=== PATIENT | female | born 1950 | race Caucasian/White ===

== ENCOUNTER 2024-05-17 12:07 | Emergency (ER) | payer MEDICARE, OTHER ==
[~2024-05-17] VITALS: Ht 157.5 cm; Wt 47.1 kg
[2024-05-17 13:13] LABS: Basophils # (auto) 0 10 ^3/uL (0-0.2); Basophils % (auto) 0.9 % (0.0-2.0); Eosinophils # (auto) 0.5 10 ^3/uL (0-0.8); Eosinophils % (auto) 9.7 % (0.0-7.0); Hematocrit 43.9 % (36.0-46.0); Hemoglobin 15.2 g/dL (12.2-16.2); Lymphocytes # (auto) 1.2 10 ^3/uL (0.4-5.4); Lymphocytes % (auto) 23.1 % (10.0-50.0); Mean Corpuscular Hemoglobin 32.5 pg (28.0-32.0); Mean Corpuscular Hgb Conc. 34.6 g/dL (32.0-36.0); Monocytes # (auto) 0.4 10 ^3/uL (0-1.3); Monocytes % (auto) 8.1 % (0.0-12.0); Neutrophils % (auto) 58.2 % (37.0-80.0); Platelet Count (auto) 233 10^3/uL (140-450); Red Blood Cells 4.68 10^6/uL (4.0-5.20); Red Cell Distribution Width 13.7 % (11.8-14.3); White Blood Cell 5.2 10^3/uL (4.4-10.8)
[2024-05-17 13:27] LABS: Chloride 106 mmol/L (98-107); Potassium 3.1 mmol/L (3.5-5.1); Sodium 141 mmol/L (136-145)
[2024-05-17 13:28] LABS: Anion Gap 6 (5-15); Carbon Dioxide 29 mmol/L (20-30)
[2024-05-17 13:29] LABS: Calcium 10.4 mg/dL (8.7-10.4)
[2024-05-17 13:33] LABS: Glucose 106 mg/dL (74-106)
[2024-05-17 13:36] VITALS: BP 108/62; PULSE 66; RESP 22; TEMP 98.1; O2SAT 99
[2024-05-17] MEDS: ALBUTEROL SULF 2.5 MG/0.5ML(0.5%) NEB SOLN ONE (13:55)
[2024-05-17 14:00] VITALS: RESP 12; O2SAT 100
[2024-05-17] MEDS ORDERED: ALBUTEROL SULF 2.5 MG/0.5ML(0.5%) NEB SOLN NEB ONE (14:00)
[2024-05-17 14:15] LABS: BUN/Creatinine Ratio 13.7 (10.0-20.0); Blood Urea Nitrogen 13 mg/dL (9-23)
== END 2024-05-17 15:16 | disposition home or self-care (01) ==
LOC: ER 12:07
DX: R06.02 Shortness of breath (principal); E78.5 Hyperlipidemia, unspecified
CPT/HCPCS: 36415; 71045; 80048; 84484; 85025; 93005; 94640

== ENCOUNTER 2024-07-30 16:16 | Inpatient (IN) | payer MEDICARE ==
[~2024-07-30] VITALS: Ht 157.5 cm; Wt 51.2 kg
[2024-07-30 16:33] VITALS: PULSE 117; RESP 24; O2SAT 96
[2024-07-30] MEDS: LEVALBUTEROL HCL 1.25 MG/3 ML NEB NEB ONE ×2 (16:39→18:34)
[2024-07-30] MEDS: IPRATROPIUM BROM 0.5 MG/2.5ML INH SOL NEB ONE ×2 (16:39→18:33)
[2024-07-30] MEDS: methylPREDNISolone SOD SUCC 125 MG/2 ML VL IV ONE (16:43)
--- NOTE | 2024-07-30 16:47 | ED.PDOC ---
SOB-HPI HPI Comments This is a 74-year-old female who comes into the ED with chief complain of shortness of breath. She has a past medical history relevant for hypertension, hypothyroidism. Denies any smoking history. History was obtained by granddaughter as patient could not speak in full sentences due to respiratory distress. They state that she started having productive cough two days ago, along with shortness of breath, which was worse on exertion, they state that today at home diminishes her saturation and was in the 80s, so they decided to bring her to the hospital. Patient also states having [id number] chest pain, she stated that it was located throughout the chest, which is worse on deep inspiration, she mentions that all her symptoms get worse on exertion. She was also experiencing dizziness and lightheadedness in the last couple of days. She also mentions that in the last 4-5 months she has lost around 45 lb. Denies any chills, fevers, night sweats. Denies any abdominal pain, nausea, vomiting, diarrhea, constipation, extremity swelling, hematochezia, melena. Chief Complaint: Shortness of Breath Time Seen by MD: 16:17 Primary Care Provider: DARIUS Reviewed notes: Nurses Notes Information Source: Patient, Relative (GrandChild) Mode of Arrival: Ambulatory Severity: Severe Timing: Days Duration: Since onset Context: At Rest Past Medical History PAST MEDICAL HISTORY: High Lipids, Thyroid Surgical History: Denies all surgeries INFORMATION WRITER History: Denies all INFORMATION WRITER Hx Family History Family History: Reviewed,noncontributory to illness Social History Smoker: Non-Smoker Alcohol: Denies ETOH Use Drugs: Denies Drug Use Lives In: Home Constitutional: reports: chills, fatigue, malaise, weakness; denies: diaphoresis, fever, sweats, others EENTM: denies: blurred vision, double vision, ear bleeding, ear discharge, ear drainage, ear pain, ear ringing, eye pain, eye redness, hearing loss, mouth pain, mouth swelling, nasal discharge, nose bleeding, nose congestion, nose pain, photophobia, tearing, throat pain, throat swelling, voice changes, others Respiratory: reports: cough, orthopnea, SOB at rest, shortness of breath, SOB with excertion, wheezing; denies: hemoptysis, stridor, others Cardiovascular: reports: chest pain; denies: dizzy spells, diaphoresis, Dyspnea on exertion, edema, irregular heart beat, left arm pain, lightheadedness, palpitations, PND, syncope, others Gastrointestinal: denies: abdomen distended, abdominal pain, blood streaked bowels, constipated, diarrhea, dysphagia, difficulty swallowing, hematemesis, melena, nausea, poor appetite, poor fluid intake, rectal bleeding, rectal pain, vomiting, others Genitourinary: denies: abnormal vagina bleeding, burning, dyspareunia, dysuria, flank pain, frequency, hematuria, incontinence, pain, , vagina discharge, urgency, others Neurological: denies: dizziness, fainting, headache, left sided numbness, left sided weakness, numbness, paresthesia, pre-existing deficit, right sided numbness, right sided weakness, seizure, speech problems, tingling, tremors, weakness, others Musculoskeletal: denies: back pain, gout, joint pain, joint swelling, muscle pain, muscle stiffness, neck pain, others Integumetry: denies: bruises, change in color, change in hair/nails, dryness, laceration, lesions, lumps, rash, wounds, others Allergic/Immunocompromised: denies: Difficulty Healing, Frequent Infections, Hives, Itching, others Hematologic/Lymphatic: denies: anemia, blood clots, easy bleeding, easy bruising, swollen glands, others Endocrine: denies: excessive hunger, excessive sweating, excessive thirst, excessive urination, flushing, intolerance to cold, intolerance to heat, unexplained weight gain, unexplained weight loss, others Psychiatric: denies: anxiety, bipolar disorder, depression, hopeless, panic disorder, schizophrenia, sleepless, suicidal, others Physical Exam General Appearance: Severe Distress, Thin HEENT: Normal ENT Inspection, Pharynx Normal, TMs Normal Neck: Full Range of Motion, Non-Tender, Normal, Normal Inspection Respiratory: Decreased Breath Sounds, Expiration, Respiratory Distress, Wheezing Cardiovascular: No Edema, No JVD, No Murmur, No Gallop, Normal Peripheral Pulses, Tachycardia Breast Exam: Deferred Gastrointestinal: No Organomegaly, Non Tender, No Pulsatile Mass, Normal Bowel Sounds, Soft Genitalia: Deferred Pelvic: Deferred Rectal: Deferred Extremities: No calf tenderness, Normal capillary refill, Normal inspection, Normal range of motion, Non-tender, No pedal edema Neurologic: Alert, shellfish checker II-XII nml as Tested, No Motor Deficits, Normal Affect, Normal Mood, No Sensory Deficits Cerebellar Function: NOT DONE Reflexes: NOT DONE Skin: Dry, Normal Color, Warm Lymphatic: No Adenopathy Was a procedure done? Was a procedure done?: No Differential Dx Differential Diagnosis: Asthma, Bronchitis, CHF, COPD, Hypertension, Myocardial infarction, Pneumonia, Pulmonary Embolism, Respiratory Distress, URI X-Ray, Labs, Meds, VS Vital Signs Date Time Temp Pulse Resp B/P (MAP) Pulse Ox O2 Delivery O2 Flow Rate FiO2 07/30/24 16:39 22 97 Nasal Cannula* 44 07/30/24 16:39 97 Nasal Cannula* 44 07/30/24 16:37 111 07/30/24 16:33 117 24 96 Nasal Cannula* 44 07/30/24 16:33 99.8 117 24 156/92 (113) 96 99.8 07/30/24 16:18 98.7 122 28 161/83 (109) 93 Lab Test 07/30/24 17:48 07/30/24 16:48 Range/Units Troponin I High Sensitivity Pending 10 </=34 ng/L White Blood Count 11.2 H 4.4-10.8 10^3/uL Red Blood Count 4.38 4.0-5.20 10^6/uL Hemoglobin 14.4 12.2-16.2 g/dL Hematocrit 42.0 36.0-46.0 % Mean Corpuscular Volume 95.8 80.0-100.0 fL Mean Corpuscular Hemoglobin 33.0 H 28.0-32.0 pg Mean Corpuscular Hemoglobin Concent 34.4 32.0-36.0 g/dL Red Cell Distribution Width 12.8 11.8-14.3 % Platelet Count 191 140-450 10^3/uL Mean Platelet Volume 8.4 6.9-10.8 fL Neutrophils (%) (Auto) 87.7 H 37.0-80.0 % Lymphocytes (%) (Auto) 4.6 L 10.0-50.0 % Monocytes (%) (Auto) 7.3 0.0-12.0 % Eosinophils (%) (Auto) 0.1 0.0-7.0 % Basophils (%) (Auto) 0.3 0.0-2.0 % Neutrophils # (Auto) 9.8 H 1.6-8.6 10 ^3/uL Lymphocytes # (Auto) 0.5 0.4-5.4 10 ^3/uL Monocytes # (Auto) 0.8 0-1.3 10 ^3/uL Eosinophils # (Auto) 0 0-0.8 10 ^3/uL Basophils # (Auto) 0 0-0.2 10 ^3/uL Nucleated Red Blood Cells 0.1 % D-Dimer, Quantitative 0.46 0.0-0.49 mg/L FEU Sodium Level 139 136-145 mmol/L Potassium Level 3.0 L 3.5-5.1 mmol/L Chloride Level 103 98-107 mmol/L Carbon Dioxide Level 27 20-31 mmol/L Anion Gap 9 5-15 Blood Urea Nitrogen 22 9-23 mg/dL Creatinine 1.21 H 0.550-1.02 mg/dL Glomerular Filtration Rate Calc 47 >90 mL/min BUN/Creatinine Ratio 18.2 10.0-20.0 Serum Glucose 116 H 74-106 mg/dL Calcium Level 9.8 8.7-10.4 mg/dL B-Type Natriuretic Peptide 39.71 0-100 pg/mL Current Medications Medications (Trade) Dose Ordered Sig/Minda Route Start Time Stop Time Status Last Admin Levalbuterol HCl (Xopenex Medneb) 1.25 mg ONCE ONCE NEB 07/30/24 16:30 07/30/24 16:31 DC 07/30/24 16:39 Ipratropium Munden (Atrovent Medneb) 1 mg ONCE ONCE NEB 07/30/24 16:30 07/30/24 16:31 DC 07/30/24 16:39 Methylprednisolone Sodium Succinate (Solu Medrol) 80 mg ONCE ONCE IV 07/30/24 16:45 07/30/24 16:46 DC 07/30/24 16:43 Azithromycin 250 ml @ 125 mls/hr ONCE ONCE IV 07/30/24 17:00 07/30/24 18:59 07/30/24 17:20 On my initial assessment, patient was noted to be on severe distress due to sh ortness of breath, using accessory muscles, blood pressure was 160 over 90, saturating in the 80s%, we place her on nasal cannula at 6 L, oxygen saturation went up to 96%. Patient is noted to be wheezing, having chest pain as well. Heart rate is at 120s. Respiratory rate was 28 initially and it came down to 22. We ordered a CBC, BNP, D-dimer, troponins, BMP, chest x-ray, EKG, influenza test, COVID test, UA, we will also prescribe her Xopenex inhaler and Atrovent inhaler, chest x-ray demonstrated hyperinflated lungs, no definitive consolidation or significant vascular congestion, we will order Solu-Medrol 80 mg IV once, and ordered azithromycin IV. We will continue to reassess. [place] [address], with neutrophilia, troponins were normal, EKG without ST changes, BNP was normal. D-dimer came back negative, patient respiratory rate is currently at 18, heart rate is still running in the 110s, EKG showed in sinus tachycardia, we will order 2nd dose of Xopenex and Atrovent, gave her potassium pill as she was mildly hypokalemic, we will also give her magnesium IV. We will put the patient for admission given acute hypoxic respiratory failure, likely related to COPD or asthma exacerbation, possible pulmonary fibrosis. PE or DVT was ruled out. Images Reviewed?: Images reviewed and evaluated by me Time of 1ST Reevaluation: 16:37 Reevaluation 1ST: Unchanged Time of 2ND Reevaluation: 17:59 Reevaluation 2ND: Improved Patient Education/Counseling: Diagnosis, Treatment Family Education/Counseling: Diagnosis, Treatment Departure 1 Departure Time of Disposition: 17:59 Impression: Primary Impression: Acute hypoxic respiratory failure Additional Impressions: COPD exacerbation Asthma exacerbation Viral pneumonia Pulmonary embolism ACS (acute coronary syndrome) Essential hypertension Sepsis Disposition: 09 ADMITTED INPATIENT Condition: Guarded Critical Care Note Critical Care Time?: No Stability Stability form required: No Heart Score Heart Score: Heart Score Response (Comments) Value History Moderate Suspicious 1 EKG Repolarization Disturb 1 Age >65 2 Risk Factors 1 or 2 risk factors 1 Troponin Normal limit 0 Total 5 JANAE HAYWOOD RESIDENT Jul 30, 2024 16:47
--- NOTE | 2024-07-30 16:54 | DVH ---
EXAM: XR Chest, 1 View CLINICAL INDICATION: sob TECHNIQUE: Frontal view of the chest. COMPARISON: XY CHEST XRAY 1 VIEW on DOS: 05/17/24 FINDINGS: LUNGS AND PLEURAL SPACES: Unremarkable. No consolidation. No pneumothorax. HEART: Unremarkable. No cardiomegaly. MEDIASTINUM: Unremarkable. Normal mediastinal contour. BONES/JOINTS: Unremarkable. No acute fracture. OTHER FINDINGS: . . . IMPRESSION: No acute cardiopulmonary process. HS:Y
[2024-07-30 17:02] LABS: Basophils # (auto) 0 10 ^3/uL (0-0.2); Basophils % (auto) 0.3 % (0.0-2.0); Eosinophils # (auto) 0 10 ^3/uL (0-0.8); Eosinophils % (auto) 0.1 % (0.0-7.0); Hemoglobin 14.4 g/dL (12.2-16.2); Lymphocytes # (auto) 0.5 10 ^3/uL (0.4-5.4); Lymphocytes % (auto) 4.6 % (10.0-50.0); Mean Corpuscular Hgb Conc. 34.4 g/dL (32.0-36.0); Mean Corpuscular Volume 95.8 fL (80.0-100.0); Monocytes # (auto) 0.8 10 ^3/uL (0-1.3); Monocytes % (auto) 7.3 % (0.0-12.0); Neutrophils # (auto) 9.8 10 ^3/uL (1.6-8.6); Neutrophils % (auto) 87.7 % (37.0-80.0); Nucleated Red Blood Cells % 0.1 %; Platelet Count (auto) 191 10^3/uL (140-450); Red Blood Cells 4.38 10^6/uL (4.0-5.20); Red Cell Distribution Width 12.8 % (11.8-14.3); White Blood Cell 11.2 10^3/uL (4.4-10.8)
[2024-07-30] MEDS: AZITHROMYCIN 500MG/ 250ML 250 ML IV ONE (17:20)
[2024-07-30 17:40] LABS: Chloride 103 mmol/L (98-107); Sodium 139 mmol/L (136-145)
[2024-07-30 17:41] LABS: Anion Gap 9 (5-15); Carbon Dioxide 27 mmol/L (20-31)
[2024-07-30 17:42] LABS: Calcium 9.8 mg/dL (8.7-10.4)
[2024-07-30 17:46] LABS: BUN/Creatinine Ratio 18.2 (10.0-20.0); Blood Urea Nitrogen 22 mg/dL (9-23); Glucose 116 mg/dL (74-106)
[2024-07-30] MEDS: POTASSIUM CHL 20 Meq TABLET PO ONE (18:02)
[2024-07-30] MEDS: MAGNESIUM SULFATE 1GM/100ML 100 ML IV ONE (18:23)
--- NOTE | 2024-07-30 18:35 | ECG ---
[facility] Test Date: 2024-07-30 Test Time: 16:37:56 Pat Name: HERIBERTO RETANA Department: ER Room: 0245 Gender: F Channel Supervisor: DR YOON: 1950 Requested By: JANAE GARZA Order Number: [id number] Reading MD: Rachid Genao Measurements Intervals [place] Rate: 111 P: 78 VT: 147 QRS: -8 QRSD: 92 T: 48 QT: 333 QTc: 453 Interpretive Statements Sinus tachycardia Multiple premature complexes, vent & supraven Low voltage, extremity and precordial leads Electronically Signed On 07-31-2024 12:45:36 PST by Rachid Genao Please click the below link to view image of tracing.
[2024-07-30 18:57] LABS: COVID19 ANTIGEN SOFIA FIA NEGATIVE (NEGATIVE); Rapid Influenza A Negative (Negative); Rapid Influenza B Negative (Negative)
[2024-07-30 19:37] VITALS: PULSE 101; RESP 25; O2SAT 97
[2024-07-30] MEDS ORDERED: ONDANSETRON HCL 4 MG/2 ML VIAL IV PRN (21:45)
[2024-07-30] MEDS ORDERED: NITROGLYCERIN 0.4 MG SL TAB SL PRN (21:45)
[2024-07-30] MEDS ORDERED: ACETAMINOPHEN 325 MG TAB PO PRN (21:45)
[2024-07-30] MEDS ORDERED: MORPHINE SULFATE INJ 2 MG/ml SYRG IV PRN (21:45)
[2024-07-30] MEDS ORDERED: HYDROcodone-ACET 5/325MG TAB PO PRN (21:45)
[2024-07-30] MEDS: SODIUM CHLOR 0.9% PF (SALINE LOCK) 10ML VIAL/SYR IV SCH (22:04)
--- NOTE | 2024-07-30 22:06 | DVHHPRES ---
History of Present Illness Resident Creating Document: TUNG CONTRERAS RESIDENT History of Present Illness This is a 74-year-old female who comes into the ED with chief complain of shortness of breath. She has a past medical history relevant for hypertension, hypothyroidism. History was obtained by granddaughter as patient could not speak in full sentences due to respiratory distress. They state that she started having productive cough two days ago, along with shortness of breath, which was worse on exertion, and today at home diminishes her saturation and was in the 80s, so they decided to bring her to the hospital. Patient also states having xevr-xu-[id number] chest pain,located throughout the chest, which is worse on deep inspiration, she mentions that all her symptoms get worse on exertion. She was also experiencing dizziness and lightheadedness in the last couple of days. She also mentions that in the last 4-5 months she has lost around 45 lb. Denies any chills, fevers, night sweats, abdominal pain, nausea, vomiting, diarrhea, constipation, extremity swelling, hematochezia, melena. Past Medical History Hypertension, hyperlipidemia, hypothyroidism. Past Surgical History Cholecystectomy Family History: None Smoke: No ALCOHOL: none Drugs: None Lives: Alone Review of Systems Constitutional: No: Fever, Chills, Sweats, Weakness, Malaise, Other Eyes: No: Pain, Vision change, Conjunctivae inflammation, Eyelid inflammation, Other, Redness ENT: No: Ear pain, Ear discharge, Nose pain, Nose discharge, Nose congestion, Mouth pain, Mouth swelling, Throat pain, Throat swelling, Other Respiratory: Cough, Shortness of breath, SOB with excertion, Sputum; No: Dry, Wheezing, Hemoptysis, Pleuritic Pain, Wheezing, Other Cardiovascular: Chest Pain; No: Palpitations, Orthopnea, Paroxysmal Noc. Dyspnea, Edema, Lt Headedness, Other Gastrointestinal: No: Nausea, Vomiting, Abdominal Pain, Diarrhea, Constipation, Melena, Hematochezia, Other Genitourinary: No Dysuria, No Frequency, No Incontinence, No Hematuria, No Retention, No Other Musculoskeletal: No: other, neck pain, shoulder pain, arm pain, back pain, hand pain, leg pain, foot pain Skin: No: Rash, Lesions, Jaundice, Bruising, Other Neurological: No: Weakness, Numbness, Incoordination, Change in speech, Confusion, Seizures, Other Allergies: Coded Allergies: Penicillins (Verified Allergy, Intermediate, 07/30/24) Medications Current Medications Medications Dose Ordered Sig/Minda Route Start Time Stop Time Status Last Admin Dose Admin Sodium Chloride 10 ml Q8HR IV 07/30/24 22:00 07/30/24 22:04 10 ML Acetaminophen 325 mg Q4HP PRN PO 07/30/24 21:45 Acetaminophen/ Hydrocodone Bitart 1 tab Q4HP PRN PO 07/30/24 21:45 Ondansetron HCl 4 mg Q4HP PRN IV 07/30/24 21:45 Enoxaparin Sodium 40 mg DAILY SC 07/31/24 10:00 UNV Nitroglycerin 0.4 mg Q5MINP PRN SL 07/30/24 21:45 Morphine Sulfate 2 mg Q30M PRN IV 07/30/24 21:45 Exam Vital Signs Vital Signs Date Time Temp Pulse Resp B/P (MAP) Pulse Ox O2 Delivery O2 Flow Rate FiO2 07/30/24 19:37 101 25 97 Nasal Cannula* 4 36 07/30/24 19:36 98.1 114/79 (91) 98.1 Exam Physical examination: General Appearance: Alert, Oriented X3, Cooperative, moderate distress with 4L oxygen through nasal canula. HEENT: Atraumatic, PERRLA, EOMI, Mucous membrane moist/pink Respiratory: Decreased breath sound bilaterally. Cardiovascular: Regular rate, Normal S1, Normal S2, No murmurs, no chest wall tenderness Abdominal: Normal bowel sounds, Soft, No tenderness, No hepatospenomegaly, No masses Extremities: No clubbing, No cyanosis, No edema, Normal pulses, No tenderness/swelling Skin: No rashes, No breakdown, No significant lesion Neuro: Normal gait, Normal speech, Strength at 5/5 X4 ext, Normal tone, Sensation intact, Cranial nerves 3-12 NL, Reflexes 2+ Psych/Mental Status: Mental status NL, Mood NL Labs/Xrays Labs Test 07/30/24 19:31 07/30/24 18:09 07/30/24 17:48 07/30/24 16:48 Range/Units Troponin I High Sensitivity 10 </=34 ng/L Influenza Type A Antigen Negative Negative Influenza Type B Antigen Negative Negative SARS-CoV-2 Antigen (Rapid) Negative NEGATIVE Magnesium Level 1.7 1.6-2.6 mg/dL White Blood Count 11.2 H 4.4-10.8 10^3/uL Red Blood Count 4.38 4.0-5.20 10^6/uL Hemoglobin 14.4 12.2-16.2 g/dL Hematocrit 42.0 36.0-46.0 % Mean Corpuscular Volume 95.8 80.0-100.0 fL Mean Corpuscular Hemoglobin 33.0 H 28.0-32.0 pg Mean Corpuscular Hemoglobin Concent 34.4 32.0-36.0 g/dL Red Cell Distribution Width 12.8 11.8-14.3 % Platelet Count 191 140-450 10^3/uL Mean Platelet Volume 8.4 6.9-10.8 fL Neutrophils (%) (Auto) 87.7 H 37.0-80.0 % Lymphocytes (%) (Auto) 4.6 L 10.0-50.0 % Monocytes (%) (Auto) 7.3 0.0-12.0 % Eosinophils (%) (Auto) 0.1 0.0-7.0 % Basophils (%) (Auto) 0.3 0.0-2.0 % Neutrophils # (Auto) 9.8 H 1.6-8.6 10 ^3/uL Lymphocytes # (Auto) 0.5 0.4-5.4 10 ^3/uL Monocytes # (Auto) 0.8 0-1.3 10 ^3/uL Eosinophils # (Auto) 0 0-0.8 10 ^3/uL Basophils # (Auto) 0 0-0.2 10 ^3/uL Nucleated Red Blood Cells 0.1 % D-Dimer, Quantitative 0.46 0.0-0.49 mg/L FEU Sodium Level 139 136-145 mmol/L Potassium Level 3.0 L 3.5-5.1 mmol/L Chloride Level 103 98-107 mmol/L Carbon Dioxide Level 27 20-31 mmol/L Anion Gap 9 5-15 Blood Urea Nitrogen 22 9-23 mg/dL Creatinine 1.21 H 0.550-1.02 mg/dL Glomerular Filtration Rate Calc 47 >90 mL/min BUN/Creatinine Ratio 18.2 10.0-20.0 Serum Glucose 116 H 74-106 mg/dL Calcium Level 9.8 8.7-10.4 mg/dL B-Type Natriuretic Peptide 39.71 0-100 pg/mL Assessment/Plan Assessment/Plan Assessment and plan: # Sepsis likely due to possible Gram-positive/Gram-negative pneumonia - patient was presented with elevated temperature, tachycardia, tachypnea and elevated lactic acid - IV normal saline 500 mL bolus given followed by IV normal saline at 75 mL/hour - Ordered blood culture and sputum culture - IV ceftriaxone 1 g daily and IV azithromycin 500 mg daily. # Acute respiratory failure due to possible Gram-positive/Gram-negative pneumonia - Patient is on 4 L oxygen through nasal cannula and saturation 94% # Possible Gram-positive/Gram-negative pneumonia - Chest x-ray revealed normal study - and flu are negative - Ordered blood culture and sputum culture - IV ceftriaxone 1 g daily and IV azithromycin 500 mg daily. # Ruled out pulmonary embolism - D-dimer is normal. # GAVIN likely due to hemodynamically mediated/VMN - IV n/s at 75 ml/hr - Monitor BMP # Hypokalemia - Replenished. # DVT prophylaxis - Lovenox 40 mg sc daily Goal of care discussed with the patient for more than 20 minutes full code Plan of treatment discussed with Dr. Arreaga Plan discussed with: Patient, Other My Orders Orders - TUNG CONTRERAS RESIDENT Procedure Category Date Status Time Admit ADMIT 07/30/24 Transmitted 21:41 Code Status CODE 07/30/24 Transmitted 21:41 Sodium Chloride Lock PHA 07/30/24 In Process (Saline Lock Ns) 22:00 Oxygen Per Hour RT 07/30/24 Transmitted 21:41 Acetaminophen Tablet PHA 07/30/24 In Process (Tylenol Tablet) 21:45 Hydrocodone-Acet PHA 07/30/24 In Process 5/325mg Tab (Bradley 21:45 Ondansetron Hcl PHA 07/30/24 In Process (Zofran) 21:45 Enoxaparin Sodium PHA 07/31/24 Logged (Lovenox) 10:00 Fall Risk Precautions YAYA 07/30/[address] 21:41 Complete Blood Count LAB 07/31/24 Verified 04:00 Comprehensive LAB 07/31/24 Verified Metabolic Panel 04:00 Pt Request For Service PT 07/30/24 Logged 21:41 Echo 2d Mode Cardiac US 07/30/24 Logged DOP 21:41 Nitroglycerin PHA 07/30/24 In Process Sublingual (Ntrostat 21:45 Morphine Sulfate PHA 07/30/24 In Process Injection 21:45 Oxygen By Nasal RT 07/30/24 Transmitted Cannula 21:41 Stat Ekg For Chest [facility] 07/30/24 In Process Pain 21:41 Notify Of Changes [facility] 07/30/24 In Process From Base 21:41 Personal Lines Insurance Advisor For [facility] 07/30/24 In Process 24 Hours 21:41 Emergency Dysrhythmia [facility] 07/30/24 In Process Protocol 21:41 Rhythm Strips Once [facility] 07/30/24 In Process Every Shift 21:41 NS PHA 07/30/24 Transmitted 22:15 Urinalysis LAB 07/30/24 Transmitted 22:03 Potassium LAB 07/30/24 Transmitted 22:05 TUNG CONTRERAS RESIDENT Jul 30, 2024 22:06
[2024-07-30] MEDS: SODIUM CHLORIDE 0.9% 1,000 ML IV ONE (22:15)
[2024-07-30 22:56] LABS: Lactic Acid w/Reflex 2.7 mmol/L (0.4-2.0)
[2024-07-30] MEDS ORDERED: AZITHROMYCIN 500MG/ 250ML 250 ML IV ONE (23:45)
[2024-07-30] MEDS: SODIUM CHLORIDE 0.9% 500 ML IV ONE (23:45)
[2024-07-31] VITALS (13 sets, daily range): BP systolic 111–141; BP diastolic 61–82; PULSE 73–104; RESP 14–21; TEMP 97.4–98.8; O2SAT 93–98
[2024-07-31] MEDS: cefTRIAXone 1GM/50ML D5W 50 ML IV ONE (01:25)
[2024-07-31] MEDS: POTASSIUM CHL 20 Meq TABLET PO ONE (01:27)
[2024-07-31] MEDS ORDERED: POTASSIUM CHLORIDE 80 MEQ, LIDOCAINE 1% (LOCAL ANESTH.) 6 ML in SODIUM CHL 0.9% 500 ML IV ONE (01:45)
[2024-07-31] MEDS ORDERED: POTASSIUM CHLORIDE 20 MEQ, LIDOCAINE 1% (LOCAL ANESTH.) 2 ML in SODIUM CHL 0.9% 100 ML IV ONE (02:00)
[2024-07-31 02:02] LABS: Urine Bacteria None Seen /hpf (None Seen)
[2024-07-31] MEDS: SODIUM CHLORIDE 0.9% 1,000 ML IV SCH (02:19)
[2024-07-31] MEDS: POTASSIUM CHL 20MEQ/100ML 100 ML IV ONE (02:20)
[2024-07-31 02:34] LABS: Urine Blood TRACE /uL (Negative); Urine Clarity Clear (Clear); Urine Color Light-Yellow (Yellow); Urine Protein, UAD TRACE (Negative); Urine Specific Gravity 1.009 (1.001-1.035); Urine Urobilinogen Normal (Negative); Urine WBC 4 /hpf (0 - 5); Urine pH 5.5 (5.0-9.0)
[2024-07-31] MEDS ORDERED: NIFE1TAB36 PO (03:06)
[2024-07-31] MEDS ORDERED: LEVO125C3 PO (03:06)
[2024-07-31] MEDS ORDERED: SIMV10TA20 PO (03:06)
[2024-07-31 05:59] LABS: Basophils # (auto) 0 10 ^3/uL (0-0.2); Basophils % (auto) 0.1 % (0.0-2.0); Eosinophils # (auto) 0 10 ^3/uL (0-0.8); Hematocrit 42.5 % (36.0-46.0); Hemoglobin 14.6 g/dL (12.2-16.2); Lymphocytes # (auto) 0.3 10 ^3/uL (0.4-5.4); Lymphocytes % (auto) 3.2 % (10.0-50.0); Mean Corpuscular Hemoglobin 32.9 pg (28.0-32.0); Mean Corpuscular Hgb Conc. 34.4 g/dL (32.0-36.0); Mean Corpuscular Volume 95.6 fL (80.0-100.0); Monocytes # (auto) 0.2 10 ^3/uL (0-1.3); Monocytes % (auto) 2.1 % (0.0-12.0); Neutrophils # (auto) 7.6 10 ^3/uL (1.6-8.6); Neutrophils % (auto) 94.6 % (37.0-80.0); Platelet Count (auto) 172 10^3/uL (140-450); Red Blood Cells 4.45 10^6/uL (4.0-5.20); Red Cell Distribution Width 12.5 % (11.8-14.3)
[2024-07-31 06:12] LABS: Alkaline Phosphatase 58 U/L (46-116); Anion Gap 6 (5-15); Aspartate Aminotransferase 9 U/L (13-40); BUN/Creatinine Ratio 15.8 (10.0-20.0); Bilirubin, Total 0.4 mg/dL (0.2-1.0); Blood Urea Nitrogen 21 mg/dL (9-23); Calcium 10.1 mg/dL (8.7-10.4); Carbon Dioxide 25 mmol/L (20-31); Chloride 106 mmol/L (98-107); Glucose 158 mg/dL (74-106); Sodium 137 mmol/L (136-145); Total Protein 6.5 g/dL (5.7-8.2)
[2024-07-31 06:13] LABS: Alanine Aminotransferase < 9 U/L (7-40)
--- NOTE | 2024-07-31 08:50 | DVH ---
Procedure: CT CHEST WITHOUT CONTRAST Reason for study/Clinical History: Weight loss. Comparison Study: None available at time of dictation. Exam Date: 07/31/2024 08:25 AM TECHNIQUE: Multidetector CT of the chest was performed from the lung apices to the upper abdomen with out the use of intravenous contract. Axial, coronal and sagittal multiplanar reformats were performed . Radiation Dose Information: CT Dose: CTDI volume is 4.56 mGy. Dose-length product is 172.44 mGy*cm The dose indicators for CT are the volume Computed Tomography (CT) Dose Index (CTDIvol) and the Dose Length Product (DLP), and are measured in units of mGy and mGy-cm, respectively. These indicators are not patient dose, but values generated from the CT scanner acquisition factors. The report includes radiation exposure data for exposures received during this examination. Radiation optimization: All CT scans at this facility use at least one of these dose optimization cornelio hniques: automated exposure control mA and/or kV adjustment per patient size (includes targeted exam s where dose is matched to clinical indication) or iterative reconstruction. FINDINGS Lungs: There is nonspecific mild patchy tree-in-bud and ground-glass opacity in the posterior left up per lobe. There is scarring versus atelectasis in the left lung base. There is no suspicious appearin g pulmonary nodule or mass. Heart/Vascular Structures: Normal heart size. No pericardial effusion. There are coronary artery calc ifications. The ascending thoracic aorta is prominent in size measuring 4.1 cm. Lymph Nodes: No thoracic lymphadenopathy. Pleura: No pleural effusion or significant pneumothorax. Musculoskeletal: No acute osseous abnormality. There is multilevel thoracic spondylosis. Soft tissues: Unremarkable. Upper abdomen: Visualized solid abdominal viscera grossly appears unremarkable. IMPRESSION: 1. Nonspecific mild patchy tree-in-bud and ground-glass opacity in the posterior left upper lobe. Th armando May relate to infectious/ inflammatory changes. A follow-up study in 3-4 months is recommended ev aluate for resolution. 2. Ascending thoracic aorta is prominent size measuring 4.1 cm. Consider further evaluation with CTA chest. HS:Y
[2024-07-31] MEDS: LEVOTHYROXINE SODIUM 50 MCG TAB PO ONE (09:44)
[2024-07-31] MEDS: ENOXAPARIN SOD 40 MG/0.4 ML SYRINGE SC SCH (09:44)
[2024-07-31] MEDS: NIFEdipine ER 30 MG TAB PO SCH (09:46)
[2024-07-31] MEDS ORDERED: guaiFENesin 200 MG/10 ML UD GT ONE (12:00)
[2024-07-31] MEDS: ALBUTEROL SULF 2.5 MG/0.5ML(0.5%) NEB SOLN NEB SCH ×2 (12:02→18:43)
[2024-07-31] MEDS: IPRATROPIUM BROM 0.5 MG/2.5ML INH SOL NEB SCH ×2 (12:02→18:42)
[2024-07-31] MEDS: MAGNESIUM SULFATE 1GM/100ML 100 ML IV SCH (12:48)
--- NOTE | 2024-07-31 13:27 | DVHSR ---
APPROVED REPORT EXAM: Two-dimensional and M-mode echocardiogram with Doppler and color Doppler. Blood Pressure: 123/76 mmHg INDICATION SOB RISK FACTORS Height: 62, Weight: 107 DIMENSIONS LVDd3.7 (3.8-5.7cm)LA (2D)4.0 (1.9-4.0cm)Aortic Root3.5 (2.0-3.7cm) LVDs2.5 (2.5-4.0cm)LA (MM) (1.9-4.0cm)Aortic Cusp Exc1.7 (1.5-2.0cm) EF (%) 61.0 (55-70%)Rt. Atrium3.8 (1.9-4.0cm)Asc. Aorta cm Mitral Valve MitralMitral Stenosis E/A ratio0.02D MVAcm2 Aortic Valve Aortic ValveAortic Stenosis LVOT Diameter1.7 (1.8-2.4cm)Doppler AVAcm2 Pulmonic Valve V20.65m/s Other Information Technically limited study due to body habitus and patient position. Unable to obtain apical view. Conclusion Normal left ventricular size and dimension. Normal left ventricular systolic function estimated ejec tion fraction 55%. There is a grade 1 diastolic dysfunction. Normal right ventricular size and dimension. Normal right ventricular systolic function. Normal biatrial size and dimension. Normal aortic valve structure and function. Normal mitral valve structure and function. Normal tricuspid valve structure and function. The pulmonary valve is grossly normal. No pericardial effusion.
[2024-07-31] MEDS ORDERED: guaiFENesin 200 MG/10 ML UD GT SCH (14:00)
[2024-07-31] MEDS: guaiFENesin 200 MG/10 ML UD PO SCH (14:27)
--- NOTE | 2024-07-31 18:08 | DVHINCON2 ---
Date of service: Jul 31, [address] Arreaga Reason for Consultation Abnormal CT chest History of Present Illness A 74-year-old woman with past medical history of hypertension, hyperlipidemia, and hypothyroidism who presented to ED on 07/30 with chief complaint of shortness of breath. History was obtained from granddaughter as patient could not speak in full sentences due to respiratory distress. They reported onset of productive cough two days prior to presentation along with shortness of breath which was worse on exertion. On day of presentation, her saturation was noted to be in the 80s, thus decided to seek medical care. Patient also reported [id number] chest pain, located throughout the chest, worse on deep inspiration. Pt stated all her symptoms get worse on exertion. Had associated dizziness and lightheadedness in the last couple of days. Admits to weight loss of approximately 45 lb in the last 4-5 months. Patient was admitted for further care. Pulmonary consultation is requested d/t these findings and abnormal CT chest. Review of Systems: 14-point review of systems negative unless otherwise noted above. Past Medical History: Hypertension, hyperlipidemia, hypothyroidism. Past Surgical History: Cholecystectomy Medications: Reviewed. Allergies: Penicillin Family History: No family history of premature CAD. No family history of lung disorders. Social History: Nonsmoker. No alcohol or illicit drug use. Family History: Patient reports no known family medical history. Allergies: Coded Allergies: Penicillins (Verified Allergy, Intermediate, 07/30/24) Home Meds Reported Medications Nifedipine (Nifedipine ER) 30 Mg Tab, 30 MG PO, TAB 07/31/24 Levothyroxine Sodium (Levothyroxine Sodium) 125 Mcg Cap, 125 MCG PO, CAP 07/31/24 Simvastatin (Simvastatin) 10 Mg Tab, 1 TAB PO QPM, #30 TAB 5 Refills 07/31/24 Current Medications Current Medications Medications (Trade) Dose Ordered Sig/Minda Route PRN Reason Start Time Stop Time Status Last Admin Sodium Chloride (Saline Lock Ns) 10 ml Q8HR IV 07/30/24 22:00 07/31/24 14:27 Acetaminophen (Tylenol Tablet) 325 mg Q4HP PRN PO MILD PAIN (1-3 PAIN SCALE) 07/30/24 21:45 Acetaminophen/ Hydrocodone Bitart ([place] 5/325MG Tab) 1 tab Q4HP PRN PO MODERATE PAIN (4-6 PAIN SCALE) 07/30/24 21:45 Ondansetron HCl (Zofran) 4 mg Q4HP PRN IV NAUSEA / VOMITING 07/30/24 21:45 Enoxaparin Sodium (Lovenox) 40 mg DAILY SC 07/31/24 10:00 07/31/24 09:44 Nitroglycerin (Ntrostat Sublingual) 0.4 mg Q5MINP PRN SL FOR CHEST PAIN 07/30/24 21:45 Morphine Sulfate 2 mg Q30M PRN IV FOR CHEST PAIN 07/30/24 21:45 Ceftriaxone Sodium 50 ml @ 100 mls/hr DAILY@2100 IV 07/31/24 21:00 Azithromycin 250 ml @ 125 mls/hr DAILY@2200 IV 07/31/24 22:00 Sodium Chloride 1,000 ml @ 75 mls/hr [id number] IV 07/31/24 02:00 07/31/24 12:00 DC 07/31/24 02:19 Nifedipine (Procardia Xl (Time-Release)) 30 mg DAILY PO 07/31/24 10:00 07/31/24 09:46 Levothyroxine Sodium (Synthroid Tablet) 125 mcg QAM@0600 PO 08/01/24 06:00 Pravastatin Sodium (Pravachol Tablet) 20 mg HS PO 07/31/24 22:00 Ipratropium [place] (Atrovent Medneb) 0.5 mg Q6HR NEB 07/31/24 12:00 07/31/24 14:07 DC 07/31/24 12:02 Albuterol (Ventolin Medneb) 1.25 mg Q6HP NEB 07/31/24 12:00 07/31/24 14:07 DC 07/31/24 12:02 Guaifenesin (Robitussin Plain Liquid) 200 mg Q8HP GT 07/31/24 14:00 07/31/24 14:09 DC Magnesium Sulfate/ Dextrose 100 ml @ 100 mls/hr Q1HR IV 07/31/24 13:00 07/31/24 14:59 DC 07/31/24 14:26 Albuterol (Ventolin Medneb) 2.5 mg Q6HR NEB 07/31/24 18:00 Ipratropium [place] (Atrovent Medneb) 0.5 mg Q6HR NEB 07/31/24 18:00 Guaifenesin (Robitussin Plain Liquid) 200 mg Q8H PO 07/31/24 14:15 07/31/24 14:27 Vital Signs Vital Signs Date Time Temp Pulse Resp B/P (MAP) Pulse Ox O2 Delivery O2 Flow Rate FiO2 07/31/24 17:00 98.5 92 14 140/75 (96) 94 98.5 07/31/24 13:49 4.0 36 07/31/24 12:02 Nasal Cannula* Physical Exam Gen.: Patient lying in bed in no apparent distress. On supplemental oxygen. Head: Normocephalic, atraumatic. Eyes: EOMI/PERRLA. Ears: Normal hearing. Normal anatomy. Neck/trachea: Trachea midline, supple. Nose: Normal external anatomy. Mouth: Moist mucous membranes. Chest: Decreased air entry bilaterally. No wheezing or rhonchi. Cardiovascular: Positive S1, positive S2. Regular rate and rhythm. Abdomen: Positive bowel sounds in all 4 quadrants. Soft, non-tender, non- distended. : Deferred. Rectal: Deferred. Skin: Warm, dry. Intact. Extremities: 2+ radial pulses bilaterally. No lower extremity edema. Neuro: Awake, alert, oriented x3. No gross motor or sensory deficits. Cranial nerves II through XII intact. Gait not assessed. Labs/Diagnostic Data Labs Test 07/31/24 10:04 07/31/24 05:19 07/31/24 01:37 07/30/24 19:31 Range/Units Lactic Acid Level 1.5 0.4-2.0 mmol/L White Blood Count 8.0 # 4.4-10.8 10^3/uL Red Blood Count 4.45 4.0-5.20 10^6/uL Hemoglobin 14.6 12.2-16.2 g/dL Hematocrit 42.5 36.0-46.0 % Mean Corpuscular Volume 95.6 80.0-100.0 fL Mean Corpuscular Hemoglobin 32.9 H 28.0-32.0 pg Mean Corpuscular Hemoglobin Concent 34.4 32.0-36.0 g/dL Red Cell Distribution Width 12.5 11.8-14.3 % Platelet Count 172 140-450 10^3/uL Mean Platelet Volume 8.9 6.9-10.8 fL Neutrophils (%) (Auto) 94.6 H 37.0-80.0 % Lymphocytes (%) (Auto) 3.2 L 10.0-50.0 % Monocytes (%) (Auto) 2.1 0.0-12.0 % Eosinophils (%) (Auto) 0.0 0.0-7.0 % Basophils (%) (Auto) 0.1 0.0-2.0 % Neutrophils # (Auto) 7.6 1.6-8.6 10 ^3/uL Lymphocytes # (Auto) 0.3 L 0.4-5.4 10 ^3/uL Monocytes # (Auto) 0.2 0-1.3 10 ^3/uL Eosinophils # (Auto) 0 0-0.8 10 ^3/uL Basophils # (Auto) 0 0-0.2 10 ^3/uL Nucleated Red Blood Cells 0.0 % Sodium Level 137 136-145 mmol/L Potassium Level 5.0 3.5-5.1 mmol/L Chloride Level 106 98-107 mmol/L Carbon Dioxide Level 25 20-31 mmol/L Anion Gap 6 5-15 Blood Urea Nitrogen 21 9-23 mg/dL Creatinine 1.33 H 0.550-1.02 mg/dL Glomerular Filtration Rate Calc 42 >90 mL/min BUN/Creatinine Ratio 15.8 10.0-20.0 Serum Glucose 158 H 74-106 mg/dL Calcium Level 10.1 8.7-10.4 mg/dL Total Bilirubin 0.4 0.2-1.0 mg/dL Aspartate Amino Transferase (AST) 9 L 13-40 U/L Alanine Aminotransferase (ALT) < 9 7-40 U/L Alkaline Phosphatase 58 46-116 U/L Total Protein 6.5 5.7-8.2 g/dL Albumin 4.0 3.2-4.8 g/dL Vitamin B12 Level 574 211-911 pg/mL Vitamin D 25-Hydroxy 28.7 L 30.0-100 ng/mL Thyroid Stimulating Hormone (TSH) 0.62 0.55-4.78 uIU/mL Urine Color Light-yellow Yellow Urine Clarity Clear Clear Urine pH 5.5 5.0-9.0 Urine Specific [place] 1.009 1.001-1.035 Urine Protein Trace H Negative Urine Ketones Negative Negative Urine Blood Trace H Negative /uL Urine Nitrite Negative Negative Urine Bilirubin Negative Negative Urine Urobilinogen Normal Negative mg/dL Urine Leukocyte Esterase Trace Negative /uL Urine RBC 4 0 - 4 /hpf Urine WBC 4 0 - 5 /hpf Urine Squamous Epithelial Cells Few <5 /hpf Urine Bacteria None seen None Seen /hpf Urine Glucose Normal Normal mg/dL Troponin I High Sensitivity 10 </=34 ng/L Test 07/30/24 18:09 07/30/24 17:48 07/30/24 16:48 Range/Units Influenza Type A Antigen Negative Negative Influenza Type B Antigen Negative Negative SARS-CoV-2 Antigen (Rapid) Negative NEGATIVE Magnesium Level 1.7 1.6-2.6 mg/dL D-Dimer, Quantitative 0.46 0.0-0.49 mg/L FEU B-Type Natriuretic Peptide 39.71 0-100 pg/mL Assessment Impression: Acute hypoxic respiratory failure 2/2 pneumonia Sepsis likely due Gram negative pneumonia Pneumonia likely gram negative Atelectasis Abnormal CT chest Leucocytosis, resolved Pulmonary embolism ruled out Cachexia, pulmonary; BMI 19.6 Hypokalemia Acute kidney injury Imaging/Diagnostic: CT chest report and images reviewed. IMPRESSION: 1. Nonspecific mild patchy tree-in-bud and ground-glass opacity in the posterior left upper lobe. These May relate to infectious/ inflammatory changes. A follow-up study in 3-4 months is recommended evaluate for resolution. 2. Ascending thoracic aorta is prominent size measuring 4.1 cm. Consider further evaluation with CTA chest. D and influenza negative Plan: Supplemental oxygen 4 LPM via [place] Keep o2 saturation above 92%. Improving o2 requirements. Continue bronchodilators Continue antibiotics. F/u cultures. Recommend to repeat CT chest in 3 months to document resolution of opacities. Started Diflucan for fungal coverage due to tree and bud opacities. Monitor renal function due to Acute kidney injury. Monitor ins/outs. Monitor electrolytes. Supplement as necessary. Nutritional support. Accucheks, ISS. GI/DVT prophylaxis. Prognosis: Guarded given multiple comorbidities. Rest of plan per hospitalist and other consultants. A total of 76 minutes of clinical care time was spent reviewing the patient record, examining the patient, making a diagnostic and therapeutic plan, discussing this plan with the medical personnel, following up on diagnostic studies and following the patient for clinical stability excluding any and all procedures. At least 50% of this time was spent in direct, [id number] contact. Thank you Dr. Arreaga for allowing me to participate in this patient's care. Further recommendations will depend on patient's clinical course. Please do not hesitate to contact me if you have any questions or concerns. This medical document was created using an electronic medical record system with [employer] dictation system. Although this document has been carefully reviewed, there may still be some phonetic and typographical errors. These areas are purely typographical due to imperfections of the software programs, and do not reflect any compromise in the patient's medical care. Plan discussed with: Patient, Other (RN, MD) ISREAL PEREZ MD Jul 31, 2024 18:08
--- NOTE | 2024-07-31 19:26 | DVHPNRES ---
Progress Note Date Seen: Jul 31, 2024 Resident Creating Document: FRANCHESCA TABOR Has the PT tested + for MRSA If YES, has PT been informed?: No Medical Necessity Reason Pt with a Central, PICC or Fol: No Subjective Review of Systems This is a 74-year-old female who came into the ED with the chief complaint of shortness of breath. She has a past medical history relevant for hypertension and hypothyroidism. In the ER, history was obtained from her granddaughter as the patient could not speak in full sentences due to respiratory distress. The patient has had exertional dyspnea for six months and has visited urgent care three times due to shortness of breath. She was nebulized and discharged home, but her shortness of breath worsened over the past 2 days, and her oxygen saturation dropped into the 80s, prompting her to come to the hospital. The patient also reports having a cough with thick secretions that she could not clear easily, [id number] chest pain located throughout the chest, which is worse on deep inspiration, and dizziness and lightheadedness over the last couple of days. She has lost around 45 lbs in the last 4-5 months. She denies any chills, fevers, night sweats, abdominal pain, nausea, vomiting, diarrhea, constipation, extremity swelling, hematochezia, or melena. PCP: Dr. Noriega PMHx: Hypertension, hyperlipidemia, hypothyroidism PSHx: Cholecystectomy, appendectomy, lung surgery at [facility] (details unknown) Family history: Noncontributory Social history: Lives alone Home medication: Levothyroxine 125 mcg, nifedipine 30 mg, simvastatin 10 mg Allergic history: Penicillin Lab studies were significant for raised WBC at 11.2, decreased potassium at 3.0, raised creatinine at 1.21, magnesium at 1.7, and raised lactate at 2.7. Chest X- ray showed hyperinflation with a tubular-shaped heart. During hospital admission, the patient was treated for acute hypoxic respiratory failure due to pneumonia. She was given injection azithromycin, ceftriaxone, oxygen through a nasal cannula, and breathing treatments. Home medications were resumed, and the patient was also put on enoxaparin for DVT prevention. Due to persistent cough and secretions that the patient could not clear, pulmonology was consulted. The patient was seen and examined at the bedside. She is feeling better but still complains of shortness of breath and cannot speak in complete sentences. The patient is maintaining saturation at 96% with 4 L of oxygen. Patient reports: No new complaints, Feels better Changes from previous H/P or p: Changes Objective vital signs Vital Sign Date Time Temp Pulse Resp B/P (MAP) Pulse Ox O2 Delivery O2 Flow Rate FiO2 07/31/24 18:53 90 16 93 07/31/24 17:00 98.5 140/75 (96) 98.5 07/31/24 13:49 4.0 36 07/31/24 12:02 Nasal Cannula* Total Intake and Output 07/30/24 07/30/24 07/31/24 15:00 23:00 07:00 Intake Total 125 ml 550 ml Output Total 400 ml Balance 125 ml 150 ml medications Current Medications Medications Dose Ordered Sig/Minda Route Start Time Stop Time Status Last Admin Dose Admin Sodium Chloride 10 ml Q8HR IV 07/30/24 22:00 07/31/24 14:27 10 ML Acetaminophen 325 mg Q4HP PRN PO 07/30/24 21:45 Acetaminophen/ Hydrocodone Bitart 1 tab Q4HP PRN PO 07/30/24 21:45 Ondansetron HCl 4 mg Q4HP PRN IV 07/30/24 21:45 Enoxaparin Sodium 40 mg DAILY SC 07/31/24 10:00 07/31/24 09:44 40 MG Nitroglycerin 0.4 mg Q5MINP PRN SL 07/30/24 21:45 Morphine Sulfate 2 mg Q30M PRN IV 07/30/24 21:45 Ceftriaxone Sodium 50 ml @ 100 mls/hr DAILY@2100 IV 07/31/24 21:00 Azithromycin 250 ml @ 125 mls/hr DAILY@2200 IV 07/31/24 22:00 Nifedipine 30 mg DAILY PO 07/31/24 10:00 07/31/24 09:46 30 MG Levothyroxine Sodium 125 mcg QAM@0600 PO 08/01/24 06:00 Pravastatin Sodium 20 mg HS PO 07/31/24 22:00 Albuterol 2.5 mg Q6HR NEB 07/31/24 18:00 07/31/24 18:43 2.5 MG Ipratropium [place] 0.5 mg Q6HR NEB 07/31/24 18:00 07/31/24 18:42 0.5 MG Guaifenesin 200 mg Q8H PO 07/31/24 14:15 07/31/24 14:27 200 MG Fluconazole 200 mg DAILY PO 08/01/24 10:00 08/08/24 09:59 Examination General Appearance: Alert, Oriented X3, Cooperative, but in respiratory distress that could not speak in complete sentence HEENT: Atraumatic, PERRLA, EOMI, Mucous membrane moist/pink Respiratory: Left-sided crypts on chest auscultation Cardiovascular: Regular rate, Normal S1, Normal S2, No murmurs, no chest wall tenderness Abdominal: Normal bowel sounds, Soft, No tenderness, No hepatospenomegaly, No masses Extremities: No clubbing, No cyanosis, No edema, Normal pulses, No tenderness/swelling Skin: No rashes, No breakdown, No significant lesion laboratory and microbiology Laboratory Tests 07/31/24 05:19 Test 07/31/24 05:19 Range/Units Serum Glucose 158 H 74-106 mg/dL Labs and/or images reviewed: Labs reviewed by me, Image(s) reviewed by me Problem List/Assessment/Plan Problem List/Assessment/Plan Acute hypoxic respiratory failure due to pneumonia Pneumonia due to Gram-positive Gram-negative Sepsis likely due to pneumonia Ceftriaxone and azithromycin Blood and sputum culture MRSA screening COVID and flu were negative Breathing treatment IV normal saline 1 L Pulmonology consultation due to persistent cough with thick secretion that could not clear Guaifenesin GAVIN on CKD grade 2 (based on records from 05/17/2024 GFR 62), likely hemodynamically mediated Normal saline 1 L Hypomagnesemia Supplemented Hypokalemia Supplemented Ruled out pulmonary emboli D-dimer within normal limits Hypothyroidism Continue home medication Hypertension Continue home medication Hyperlipidemia Continuing home medication Vitamin-D deficiency Supplemented DVT prophylaxis Lovenox Code status Full Code Case discussed with Dr. Arreaga Plan discussed with: Patient, Other (RN) My Orders My Orders Orders - FRANCHESCA TABOR RESDIDIEGO Procedure Category Date Status Time Nifedipine Er PHA 07/31/24 In Process (Procardia Xl 10:00 Levothyroxine Tablet PHA 08/01/24 In Process (Synthroid Tablet) 06:00 Pravastatin Sodium PHA 07/31/24 In Process Tablet (Pravachol Tab 22:00 *Consult CONS 07/31/24 Transmitted / 11:48 Guaifenesin Plain PHA 07/31/24 In Process Liquid (Robitussin Jyoti 14:15 FRANCHESCA TABOR RESDIDIEGO Jul 31, 2024 19:25
[2024-07-31] MEDS: cefTRIAXone 1GM/50ML D5W 50 ML IV SCH (21:03)
[2024-07-31] MEDS: PRAVASTATIN SODIUM 20 MG TAB PO SCH (22:42)
[2024-07-31] MEDS: AZITHROMYCIN 500MG/ 250ML 250 ML IV SCH (22:51)
[2024-08-01] VITALS (16 sets, daily range): BP systolic 129–146; BP diastolic 66–78; PULSE 11–114; RESP 16–20; TEMP 97.7–99.3; O2SAT 92–99
[2024-08-01] MEDS: LEVOTHYROXINE SODIUM 50 MCG TAB PO SCH (05:51)
[2024-08-01 05:58] LABS: Basophils # (auto) 0 10 ^3/uL (0-0.2); Basophils % (auto) 0.3 % (0.0-2.0); Eosinophils # (auto) 0 10 ^3/uL (0-0.8); Hematocrit 38.6 % (36.0-46.0); Hemoglobin 13.5 g/dL (12.2-16.2); Lymphocytes # (auto) 0.7 10 ^3/uL (0.4-5.4); Lymphocytes % (auto) 7.1 % (10.0-50.0); Mean Corpuscular Hemoglobin 33.8 pg (28.0-32.0); Mean Corpuscular Volume 96.6 fL (80.0-100.0); Monocytes # (auto) 0.7 10 ^3/uL (0-1.3); Monocytes % (auto) 7.1 % (0.0-12.0); Neutrophils # (auto) 8.7 10 ^3/uL (1.6-8.6); Neutrophils % (auto) 85.5 % (37.0-80.0); Platelet Count (auto) 170 10^3/uL (140-450); Red Cell Distribution Width 12.8 % (11.8-14.3); White Blood Cell 10.2 10^3/uL (4.4-10.8)
[2024-08-01 06:20] LABS: Anion Gap 6 (5-15); Calcium 9.6 mg/dL (8.7-10.4); Carbon Dioxide 27 mmol/L (20-31); Chloride 105 mmol/L (98-107); Potassium 3.9 mmol/L (3.5-5.1); Sodium 138 mmol/L (136-145)
[2024-08-01 06:26] LABS: BUN/Creatinine Ratio 20.5 (10.0-20.0); Blood Urea Nitrogen 24 mg/dL (9-23); Glucose 99 mg/dL (74-106)
[2024-08-01] MEDS: SORE THROAT SPRAY 6OZ BOTTLE MT ONE (10:45)
[2024-08-01] MEDS ORDERED: SORE THROAT SPRAY 6OZ BOTTLE MT PRN (10:45)
[2024-08-01] MEDS: FLUCONAZOLE 100 MG TAB PO SCH (11:24)
[2024-08-01] MEDS: ACETYLCYSTEINE 20%(200MG/ML) SOL 4ML NEB SCH (13:41)
--- NOTE | 2024-08-01 13:46 | DVHPNRES ---
Progress Note Date Seen: Aug 01, 2024 Resident Creating Document: FRANCHESCA TABOR AJ Has the PT tested + for MRSA If YES, has PT been informed?: No Medical Necessity Reason Pt with a Central, PICC or Fol: No Subjective Review of Systems Patient seen and examined at the bedside. Patient is feeling better since admission. Patients shortness of breath has improved and currently can maintain saturation on 2 L of oxygen. Patient reports: No new complaints, Feels better Changes from previous H/P or p: No Changes Objective vital signs Vital Sign Date Time Temp Pulse Resp B/P (MAP) Pulse Ox O2 Delivery O2 Flow Rate FiO2 08/01/24 13:00 98.7 111 19 146/74 (98) 93 98.7 08/01/24 07:21 Nasal Cannula* 2 28 Total Intake and Output 07/31/24 07/31/24 08/01/24 15:00 23:00 07:00 Intake Total 220 ml 1070 ml 1050 ml Balance 220 ml 1070 ml 1050 ml medications Current Medications Medications Dose Ordered Sig/Minda Route Start Time Stop Time Status Last Admin Dose Admin Sodium Chloride 10 ml Q8HR IV 07/30/24 22:00 08/01/24 05:50 10 ML Acetaminophen 325 mg Q4HP PRN PO 07/30/24 21:45 Acetaminophen/ Hydrocodone Bitart 1 tab Q4HP PRN PO 07/30/24 21:45 Ondansetron HCl 4 mg Q4HP PRN IV 07/30/24 21:45 Enoxaparin Sodium 40 mg DAILY SC 07/31/24 10:00 08/01/24 11:23 40 MG Nitroglycerin 0.4 mg Q5MINP PRN SL 07/30/24 21:45 Morphine Sulfate 2 mg Q30M PRN IV 07/30/24 21:45 Ceftriaxone Sodium 50 ml @ 100 mls/hr DAILY@2100 IV 07/31/24 21:00 07/31/24 21:03 100 MLS/HR Azithromycin 250 ml @ 125 mls/hr DAILY@2200 IV 07/31/24 22:00 07/31/24 22:51 125 MLS/HR Nifedipine 30 mg DAILY PO 07/31/24 10:00 08/01/24 11:23 30 MG Levothyroxine Sodium 125 mcg QAM@0600 PO 08/01/24 06:00 08/01/24 05:51 125 MCG Pravastatin Sodium 20 mg HS PO 07/31/24 22:00 07/31/24 22:42 20 MG Albuterol 2.5 mg Q6HR NEB 07/31/24 18:00 08/01/24 07:21 2.5 MG Ipratropium [place] 0.5 mg Q6HR NEB 07/31/24 18:00 08/01/24 07:21 0.5 MG Guaifenesin 200 mg Q8H PO 07/31/24 14:15 08/01/24 05:50 200 MG Fluconazole 200 mg DAILY PO 08/01/24 10:00 08/08/24 09:59 08/01/24 11:24 200 MG Acetylcysteine 200 mg Q8HR NEB 08/01/24 14:00 08/04/24 13:59 Prednisone 20 mg BID PO 08/01/24 22:00 08/06/24 21:59 Phenol/Menthol 1 spr Q6HP PRN [place] 08/01/24 10:45 Examination General Appearance: Alert, Oriented X3, Cooperative, but in respiratory distress that could not speak in complete sentence HEENT: Atraumatic, PERRLA, EOMI, Mucous membrane moist/pink Respiratory: Bilateral rhonchi Cardiovascular: Regular rate, Normal S1, Normal S2, No murmurs, no chest wall tenderness Abdominal: Normal bowel sounds, Soft, No tenderness, No hepatospenomegaly, No masses Extremities: No clubbing, No cyanosis, No edema, Normal pulses, No tenderness/swelling Skin: No rashes, No breakdown, No significant lesion laboratory and microbiology Laboratory Tests 08/01/24 05:32 Test 08/01/24 05:32 Range/Units Serum Glucose 99 74-106 mg/dL Microbiology Date/Time Source Procedure Growth Status 07/31/24 14:30 Nose MRSA Screen - Final Complete 07/30/24 21:41 Sputum Gram Stain - Final Resulted 07/30/24 21:41 Sputum Respiratory Culture - Preliminary Resulted Labs and/or images reviewed: Labs reviewed by me, Image(s) reviewed by me Problem List/Assessment/Plan Problem List/Assessment/Plan Acute hypoxic respiratory failure due to pneumonia Pneumonia due to Gram-positive Gram-negative Sepsis likely due to pneumonia Ceftriaxone and azithromycin Sputum culture, pending Culture, pending MRSA screening, negative COVID and flu were negative Continue breathing treatment Pulmonology on board, recommended to start Diflucan for fungal coverage due to tree and bud opacities on chest CT Continue Guaifenesin Chloraseptic spray for the sore throat N-acetyl cysteine GAVIN on CKD grade 2 (based on records from 05/17/2024 GFR 62), likely hemodynamically mediated Improving Hypomagnesemia Supplemented Hypokalemia Supplemented Ruled out pulmonary emboli D-dimer within normal limits Hypothyroidism Continue home medication Hypertension Continue home medication Hyperlipidemia Continuing home medication Vitamin-D deficiency Supplemented DVT prophylaxis Lovenox Code status Full Code Case discussed with Dr. Arreaga Plan discussed with: Patient, Other (RN) My Orders My Orders Orders - FRANCHESCA TABOR RESDIDIEGO Procedure Category Date Status Time Guaifenesin Plain PHA 07/31/24 In Process Liquid (Robitussin [place] 14:15 Sore Throat [place] PHA 08/01/24 In Process (Chloraseptic) 10:45 FRANCHESCA TABOR RESDIENT Aug 01, 2024 13:46
[2024-08-01] MEDS ORDERED: ALBUTEROL SULF 2.5 MG/0.5ML(0.5%) NEB SOLN NEB PRN (16:30)
[2024-08-01] MEDS: ACETYLCYSTEINE 10 %(100MG/ML) SOL 4ML NEB SCH (18:38)
--- NOTE | 2024-08-01 20:34 | DVHPN2 ---
Progress Note - Dictate Date Seen: Aug 01, 2024 Has the PT tested + for MRSA If YES, has PT been informed?: No Medical Necessity Reason Pt with a Central, PICC or Fol: No Subjective Patient seen and examined at bedside. Remains on supplemental oxygen Overnight events reviewed. vital signs Vital Sign Date Time Temp Pulse Resp B/P (MAP) Pulse Ox O2 Delivery O2 Flow Rate FiO2 08/01/24 19:20 93 Nasal Cannula 2.0 08/01/24 19:20 28 08/01/24 18:40 103 16 08/01/24 17:00 99.3 129/78 (95) 99.3 Total Intake and Output 07/31/24 07/31/24 08/01/24 15:00 23:00 07:00 Intake Total 220 ml 1070 ml 1050 ml Balance 220 ml 1070 ml 1050 ml medications Current Medications Medications Dose Ordered Sig/Minda Route Start Time Stop Time Status Last Admin Dose Admin Sodium Chloride 10 ml Q8HR IV 07/30/24 22:00 08/01/24 14:32 10 ML Acetaminophen 325 mg Q4HP PRN PO 07/30/24 21:45 Acetaminophen/ Hydrocodone Bitart 1 tab Q4HP PRN PO 07/30/24 21:45 Ondansetron HCl 4 mg Q4HP PRN IV 07/30/24 21:45 Enoxaparin Sodium 40 mg DAILY SC 07/31/24 10:00 08/01/24 11:23 40 MG Nitroglycerin 0.4 mg Q5MINP PRN SL 07/30/24 21:45 Morphine Sulfate 2 mg Q30M PRN IV 07/30/24 21:45 Ceftriaxone Sodium 50 ml @ 100 mls/hr DAILY@2100 IV 07/31/24 21:00 07/31/24 21:03 100 MLS/HR Azithromycin 250 ml @ 125 mls/hr DAILY@2200 IV 07/31/24 22:00 07/31/24 22:51 125 MLS/HR Nifedipine 30 mg DAILY PO 07/31/24 10:00 08/01/24 11:23 30 MG Levothyroxine Sodium 125 mcg QAM@0600 PO 08/01/24 06:00 08/01/24 05:51 125 MCG Pravastatin Sodium 20 mg HS PO 07/31/24 22:00 07/31/24 22:42 20 MG Albuterol 2.5 mg Q6HR NEB 07/31/24 18:00 08/01/24 18:38 2.5 MG Ipratropium [place] 0.5 mg Q6HR NEB 07/31/24 18:00 08/01/24 18:38 0.5 MG Guaifenesin 200 mg Q8H PO 07/31/24 14:15 08/01/24 14:32 200 MG Fluconazole 200 mg DAILY PO 08/01/24 10:00 08/08/24 09:59 08/01/24 11:24 200 MG Prednisone 20 mg BID PO 08/01/24 22:00 08/06/24 21:59 Phenol/Menthol 1 spr Q6HP PRN MT 08/01/24 10:45 Acetylcysteine 100 mg Q6HR NEB 08/01/24 18:00 08/01/24 18:38 100 MG Albuterol 2.5 mg Q2HPRN PRN NEB 08/01/24 16:30 objective Gen.: Patient lying in bed in no apparent distress. On supplemental oxygen. Head: Normocephalic, atraumatic. Eyes: EOMI/PERRLA. Ears: Normal hearing. Normal anatomy. Neck/trachea: Trachea midline, supple. Nose: Normal external anatomy. Mouth: Moist mucous membranes. Chest: Decreased air entry bilaterally. Wheezing present. No rhonchi. Cardiovascular: Positive S1, positive S2. Regular rate and rhythm. Abdomen: Positive bowel sounds in all 4 quadrants. Soft, non-tender, non- distended. : Deferred. Rectal: Deferred. Skin: Warm, dry. Intact. Extremities: 2+ radial pulses bilaterally. No lower extremity edema. Neuro: Awake, alert, oriented x3. No gross motor or sensory deficits. Cranial nerves II through XII intact. Gait not assessed. laboratory and microbiology Laboratory Tests 08/01/24 05:32 Test 08/01/24 05:32 Range/Units Serum Glucose 99 74-106 mg/dL Assessment/Plan Impression: Acute hypoxic respiratory failure 2/2 pneumonia Sepsis likely due Gram negative pneumonia Pneumonia likely gram negative Atelectasis Abnormal CT chest Leucocytosis, resolved Pulmonary embolism ruled out Cachexia, pulmonary; BMI 19.6 Hypokalemia Acute kidney injury Imaging/Diagnostic: CT chest report and images reviewed. IMPRESSION: 1. Nonspecific mild patchy tree-in-bud and ground-glass opacity in the posterior left upper lobe. These May relate to infectious/ inflammatory changes. A follow-up study in 3-4 months is recommended evaluate for resolution. 2. Ascending thoracic aorta is prominent size measuring 4.1 cm. Consider further evaluation with CTA chest. D and influenza negative Events: Remains on supplemental oxygen 2 LPM via [place] Improved O2 requirements Taper O2 as tolerated. Continue antibiotics/antifungals. Continue bronchodilators IS Creatinine trending down WBC is within normal limits Wheezing - started prednisone 20 mg po BID x5 days Labs and imaging reviewed. Rest of plan as noted below. Plan: Supplemental oxygen 2 LPM via [place] Keep o2 saturation above 92%. Improving o2 requirements. Continue bronchodilators Continue antibiotics. F/u cultures. Recommend to repeat CT chest in 3 months to document resolution of opacities. Started Diflucan for fungal coverage due to tree and bud opacities. Monitor renal function due to Acute kidney injury. Monitor ins/outs. Monitor electrolytes. Supplement as necessary. Nutritional support. Accucheks, ISS. GI/DVT prophylaxis. Prognosis: Guarded given multiple comorbidities. Rest of plan per hospitalist and other consultants. A total of 51 minutes of clinical care time was spent reviewing the patient record, examining the patient, making a diagnostic and therapeutic plan, discussing this plan with the medical personnel, following up on diagnostic studies and following the patient for clinical stability excluding any and all procedures. At least 50% of this time was spent in direct, [id number] contact. Thank you Dr. Arreaga for allowing me to participate in this patient's care. Further recommendations will depend on patient's clinical course. Please do not hesitate to contact me if you have any questions or concerns. This medical document was created using an electronic medical record system with [employer] dictation system. Although this document has been carefully reviewed, there may still be some phonetic and typographical errors. These areas are purely typographical due to imperfections of the software programs, and do not reflect any compromise in the patient's medical care. Plan discussed with: Patient, Other (ABIMBOLA Youngblood) ISREAL PEREZ MD Aug 01, 2024 20:33
[2024-08-01] MEDS: predniSONE 20 MG TAB PO SCH (20:39)
[2024-08-02] VITALS (15 sets, daily range): BP systolic 116–125; BP diastolic 62–70; PULSE 72–109; RESP 16–20; TEMP 98–98.5; O2SAT 91–100
[2024-08-02 09:28] LABS: Calcium 10.3 mg/dL (8.7-10.4); Chloride 100 mmol/L (98-107); Potassium 3.7 mmol/L (3.5-5.1); Sodium 137 mmol/L (136-145)
[2024-08-02 09:29] LABS: Anion Gap 6 (5-15); Carbon Dioxide 31 mmol/L (20-31)
[2024-08-02 09:34] LABS: Blood Urea Nitrogen 15 mg/dL (9-23); Glucose 160 mg/dL (74-106)
--- NOTE | 2024-08-02 15:42 | DVHPNRES ---
Progress Note Date Seen: Aug 02, 2024 Resident Creating Document: FRANCHESCA TABOR AJ Has the PT tested + for MRSA If YES, has PT been informed?: No Medical Necessity Reason Pt with a Central, PICC or Fol: No Subjective Review of Systems Patient seen and examined at the bedside. Patient is feeling better since admission was still has shortness of breath. Patient can maintain oxygen chest at 1 L. Patient reports: No new complaints, Feels better Changes from previous H/P or p: Changes Objective vital signs Vital Sign Date Time Temp Pulse Resp B/P (MAP) Pulse Ox O2 Delivery O2 Flow Rate FiO2 08/02/24 13:00 98.1 99 18 119/62 (81) 91 98.1 08/02/24 11:28 Nasal Cannula* 1 24 Total Intake and Output 08/01/24 08/01/24 08/02/24 15:00 23:00 07:00 Intake Total 1038 ml 480 ml Balance 1038 ml 480 ml medications Current Medications Medications Dose Ordered Sig/Minda Route Start Time Stop Time Status Last Admin Dose Admin Sodium Chloride 10 ml Q8HR IV 07/30/24 22:00 08/02/24 14:03 10 ML Acetaminophen 325 mg Q4HP PRN PO 07/30/24 21:45 Acetaminophen/ Hydrocodone Bitart 1 tab Q4HP PRN PO 07/30/24 21:45 Ondansetron HCl 4 mg Q4HP PRN IV 07/30/24 21:45 Enoxaparin Sodium 40 mg DAILY SC 07/31/24 10:00 08/02/24 10:31 40 MG Nitroglycerin 0.4 mg Q5MINP PRN SL 07/30/24 21:45 Morphine Sulfate 2 mg Q30M PRN IV 07/30/24 21:45 Ceftriaxone Sodium 50 ml @ 100 mls/hr DAILY@2100 IV 07/31/24 21:00 08/01/24 20:38 100 MLS/HR Azithromycin 250 ml @ 125 mls/hr DAILY@2200 IV 07/31/24 22:00 08/01/24 20:42 125 MLS/HR Nifedipine 30 mg DAILY PO 07/31/24 10:00 08/02/24 10:32 30 MG Levothyroxine Sodium 125 mcg QAM@0600 PO 08/01/24 06:00 08/02/24 05:36 125 MCG Pravastatin Sodium 20 mg HS PO 07/31/24 22:00 08/01/24 20:39 20 MG Albuterol 2.5 mg Q6HR NEB 07/31/24 18:00 08/02/24 11:28 2.5 MG Ipratropium [place] 0.5 mg Q6HR NEB 07/31/24 18:00 08/02/24 11:28 0.5 MG Guaifenesin 200 mg Q8H PO 07/31/24 14:15 08/02/24 14:02 200 MG Fluconazole 200 mg DAILY PO 08/01/24 10:00 08/08/24 09:59 08/02/24 10:31 200 MG Prednisone 20 mg BID PO 08/01/24 22:00 08/06/24 21:59 08/02/24 10:31 20 MG Phenol/Menthol 1 spr Q6HP PRN MT 08/01/24 10:45 Acetylcysteine 100 mg Q6HR NEB 08/01/24 18:00 08/02/24 11:28 100 MG Albuterol 2.5 mg Q2HPRN PRN NEB 08/01/24 16:30 Examination General Appearance: Alert, Oriented X3, Cooperative, but in respiratory distress that could not speak in complete sentence HEENT: Atraumatic, PERRLA, EOMI, Mucous membrane moist/pink Respiratory: Bilateral rhonchi and wheezing Cardiovascular: Regular rate, Normal S1, Normal S2, No murmurs, no chest wall tenderness Abdominal: Normal bowel sounds, Soft, No tenderness, No hepatospenomegaly, No masses Extremities: No clubbing, No cyanosis, No edema, Normal pulses, No tenderness/swelling Skin: No rashes, No breakdown, No significant lesion laboratory and microbiology Laboratory Tests 08/02/24 08:52 08/01/24 05:32 Test 08/02/24 08:52 Range/Units Serum Glucose 160 H 74-106 mg/dL Microbiology Date/Time Source Procedure Growth Status 08/01/24 14:31 Sputum Expectorated Sputum Gram Stain - Final Resulted 08/01/24 14:31 Sputum Expectorated Sputum Respiratory Culture - Preliminary Resulted 07/31/24 18:14 Blood Blood Culture - Preliminary NO GROWTH AFTER 24 HOURS OF INCUBATION. Resulted 07/31/24 14:30 Nose MRSA Screen - Final Complete Labs and/or images reviewed: Labs reviewed by me, Image(s) reviewed by me Problem List/Assessment/Plan Problem List/Assessment/Plan Acute hypoxic respiratory failure due to pneumonia, improving Pneumonia due to Gram-positive Gram-negative Sepsis likely due to pneumonia Continue Ceftriaxone and azithromycin Sputum culture, is on shows normal robert growth Blood culture, after 24 hours shows no growth MRSA screening, negative COVID and flu were negative Continue breathing treatment Pulmonology on board, recommended to start Diflucan for fungal coverage due to tree and bud opacities on chest CT, and prednisone 20 mg b.i.d. due to wheezing Continue Guaifenesin Continue Chloraseptic spray for the sore throat Continue N-acetyl cysteine GAVIN on CKD grade 2 (based on records from 05/17/2024 GFR 62), likely hemodynamically mediated Improved Hypomagnesemia Supplemented Hypokalemia Supplemented Ruled out pulmonary emboli D-dimer within normal limits Hypothyroidism Continue home medication Hypertension Continue home medication Hyperlipidemia Continuing home medication Vitamin-D deficiency Supplemented DVT prophylaxis Lovenox Code status Full Code Case discussed with Dr. Arreaga Plan discussed with: Patient, Other (AN) My Orders My Orders Orders - FRANCHESCA TABOR RESDIDIEGO Procedure Category Date Status Time Albuterol Medneb PHA 08/01/24 In Process (Ventolin Medneb) 16:30 Chest Percussion Tx RT 08/02/24 Logged SUB 07:13 Date of Service: Aug 02, 2024 Billing Provider: DEVORA HAYDEN MD Common Visit Codes: [id number] INP/OBS CARE(HIGH) FRANCHESCA TABOR RESDIENT Aug 02, 2024 15:42 DEVORA HAYDEN MD Aug 03, 2024 10:32
--- NOTE | 2024-08-02 19:03 | DVHPN2 ---
Progress Note - Dictate Date Seen: Aug 02, 2024 Has the PT tested + for MRSA If YES, has PT been informed?: No Medical Necessity Reason Pt with a Central, PICC or Fol: No Subjective Patient seen and examined at bedside. Remains on supplemental oxygen Overnight events reviewed. vital signs Vital Sign Date Time Temp Pulse Resp B/P (MAP) Pulse Ox O2 Delivery O2 Flow Rate FiO2 08/02/24 16:41 98.5 107 17 125/70 (88) 93 98.5 08/02/24 11:28 Nasal Cannula* 1 24 Total Intake and Output 08/01/24 08/01/24 08/02/24 15:00 23:00 07:00 Intake Total 1038 ml 480 ml Balance 1038 ml 480 ml medications Current Medications Medications Dose Ordered Sig/Minda Route Start Time Stop Time Status Last Admin Dose Admin Sodium Chloride 10 ml Q8HR IV 07/30/24 22:00 08/02/24 14:03 10 ML Acetaminophen 325 mg Q4HP PRN PO 07/30/24 21:45 Acetaminophen/ Hydrocodone Bitart 1 tab Q4HP PRN PO 07/30/24 21:45 Ondansetron HCl 4 mg Q4HP PRN IV 07/30/24 21:45 Enoxaparin Sodium 40 mg DAILY SC 07/31/24 10:00 08/02/24 10:31 40 MG Nitroglycerin 0.4 mg Q5MINP PRN SL 07/30/24 21:45 Morphine Sulfate 2 mg Q30M PRN IV 07/30/24 21:45 Ceftriaxone Sodium 50 ml @ 100 mls/hr DAILY@2100 IV 07/31/24 21:00 08/01/24 20:38 100 MLS/HR Azithromycin 250 ml @ 125 mls/hr DAILY@2200 IV 07/31/24 22:00 08/01/24 20:42 125 MLS/HR Nifedipine 30 mg DAILY PO 07/31/24 10:00 08/02/24 10:32 30 MG Levothyroxine Sodium 125 mcg QAM@0600 PO 08/01/24 06:00 08/02/24 05:36 125 MCG Pravastatin Sodium 20 mg HS PO 07/31/24 22:00 08/01/24 20:39 20 MG Albuterol 2.5 mg Q6HR NEB 07/31/24 18:00 08/02/24 11:28 2.5 MG Ipratropium [place] 0.5 mg Q6HR NEB 07/31/24 18:00 08/02/24 11:28 0.5 MG Guaifenesin 200 mg Q8H PO 07/31/24 14:15 08/02/24 14:02 200 MG Fluconazole 200 mg DAILY PO 08/01/24 10:00 08/08/24 09:59 08/02/24 10:31 200 MG Prednisone 20 mg BID PO 08/01/24 22:00 08/06/24 21:59 08/02/24 10:31 20 MG Phenol/Menthol 1 spr Q6HP PRN MT 08/01/24 10:45 Acetylcysteine 100 mg Q6HR NEB 08/01/24 18:00 08/02/24 11:28 100 MG Albuterol 2.5 mg Q2HPRN PRN NEB 08/01/24 16:30 objective Gen.: Patient lying in bed in no apparent distress. On supplemental oxygen. Head: Normocephalic, atraumatic. Eyes: EOMI/PERRLA. Ears: Normal hearing. Normal anatomy. Neck/trachea: Trachea midline, supple. Nose: Normal external anatomy. Mouth: Moist mucous membranes. Chest: Decreased air entry bilaterally. Wheezing present. No rhonchi. Cardiovascular: Positive S1, positive S2. Regular rate and rhythm. Abdomen: Positive bowel sounds in all 4 quadrants. Soft, non-tender, non- distended. : Deferred. Rectal: Deferred. Skin: Warm, dry. Intact. Extremities: 2+ radial pulses bilaterally. No lower extremity edema. Neuro: Awake, alert, oriented x3. No gross motor or sensory deficits. Cranial nerves II through XII intact. Gait not assessed. laboratory and microbiology Laboratory Tests 08/02/24 08:52 08/01/24 05:32 Test 08/02/24 08:52 Range/Units Serum Glucose 160 H 74-106 mg/dL Assessment/Plan Impression: Acute hypoxic respiratory failure 2/2 pneumonia Sepsis likely due Gram negative pneumonia Pneumonia likely gram negative Atelectasis Abnormal CT chest Leucocytosis, resolved Pulmonary embolism ruled out Cachexia, pulmonary; BMI 19.6 Hypokalemia Acute kidney injury Imaging/Diagnostic: CT chest report and images reviewed. IMPRESSION: 1. Nonspecific mild patchy tree-in-bud and ground-glass opacity in the posterior left upper lobe. These May relate to infectious/ inflammatory changes. A follow-up study in 3-4 months is recommended evaluate for resolution. 2. Ascending thoracic aorta is prominent size measuring 4.1 cm. Consider further evaluation with CTA chest. D and influenza negative Events: Remains on supplemental oxygen 1 LPM via [place] Improved O2 requirements Taper O2 as tolerated. Continue antibiotics/antifungals. Continue bronchodilators Continue prednisone course. IS Creatinine trending down WBC is within normal limits Labs and imaging reviewed. Rest of plan as noted below. Plan: Supplemental oxygen 1 LPM via [place] Keep o2 saturation above 92%. Improving o2 requirements. Continue bronchodilators Continue antibiotics. F/u cultures. Recommend to repeat CT chest in 3 months to document resolution of opacities. Started Diflucan for fungal coverage due to tree and bud opacities. Monitor renal function due to Acute kidney injury. Monitor ins/outs. Monitor electrolytes. Supplement as necessary. Nutritional support. Accucheks, ISS. GI/DVT prophylaxis. Prognosis: Guarded given multiple comorbidities. Rest of plan per hospitalist and other consultants. A total of 51 minutes of clinical care time was spent reviewing the patient record, examining the patient, making a diagnostic and therapeutic plan, discussing this plan with the medical personnel, following up on diagnostic studies and following the patient for clinical stability excluding any and all procedures. At least 50% of this time was spent in direct, [id number] contact. Thank you Dr. Arreaga for allowing me to participate in this patient's care. Further recommendations will depend on patient's clinical course. Please do not hesitate to contact me if you have any questions or concerns. This medical document was created using an electronic medical record system with [employer] dictation system. Although this document has been carefully reviewed, there may still be some phonetic and typographical errors. These areas are purely typographical due to imperfections of the software programs, and do not reflect any compromise in the patient's medical care. Plan discussed with: Patient, Other (ABIMBOLA Benjamin) ISREAL PEREZ MD Aug 02, 2024 19:03
[2024-08-03] VITALS (22 sets, daily range): BP systolic 110–145; BP diastolic 55–72; PULSE 80–109; RESP 17–20; TEMP 97.6–98.7; O2SAT 85–99
[2024-08-03 10:48] LABS: Basophils # (auto) 0 10 ^3/uL (0-0.2); Basophils % (auto) 0.1 % (0.0-2.0); Eosinophils # (auto) 0 10 ^3/uL (0-0.8); Hematocrit 39.9 % (36.0-46.0); Hemoglobin 14.1 g/dL (12.2-16.2); Lymphocytes # (auto) 0.4 10 ^3/uL (0.4-5.4); Lymphocytes % (auto) 8.3 % (10.0-50.0); Mean Corpuscular Hemoglobin 33.6 pg (28.0-32.0); Mean Corpuscular Hgb Conc. 35.3 g/dL (32.0-36.0); Monocytes # (auto) 0.4 10 ^3/uL (0-1.3); Monocytes % (auto) 6.7 % (0.0-12.0); Neutrophils # (auto) 4.5 10 ^3/uL (1.6-8.6); Neutrophils % (auto) 84.9 % (37.0-80.0); Nucleated Red Blood Cells % 0.1 %; Platelet Count (auto) 219 10^3/uL (140-450); Red Cell Distribution Width 12.6 % (11.8-14.3); White Blood Cell 5.3 10^3/uL (4.4-10.8)
[2024-08-03 10:58] LABS: Chloride 100 mmol/L (98-107); Potassium 3.6 mmol/L (3.5-5.1); Sodium 137 mmol/L (136-145)
[2024-08-03 10:59] LABS: Anion Gap 6 (5-15); Calcium 10.3 mg/dL (8.7-10.4); Carbon Dioxide 31 mmol/L (20-31)
[2024-08-03 11:04] LABS: BUN/Creatinine Ratio 15.8 (10.0-20.0); Blood Urea Nitrogen 19 mg/dL (9-23); Glucose 172 mg/dL (74-106); Magnesium 1.7 mg/dL (1.6-2.6)
--- NOTE | 2024-08-03 15:20 | DVHPNRES ---
Progress Note Date Seen: Aug 03, 2024 Resident Creating Document: KHLOE VASQUEZ RESIDENT Has the PT tested + for MRSA If YES, has PT been informed?: No Medical Necessity Reason Pt with a Central, PICC or Fol: No Subjective Review of Systems Patient mentioning of improvement in her symptoms but on 6 minute walk test she desaturated. Objective vital signs Vital Sign Date Time Temp Pulse Resp B/P (MAP) Pulse Ox O2 Delivery O2 Flow Rate FiO2 08/03/24 13:30 18 93 08/03/24 13:00 97.6 109 141/65 (90) 97.6 08/03/24 08:00 Nasal Cannula* 1 24 Total Intake and Output 08/02/24 08/02/24 08/03/24 15:00 23:00 07:00 Intake Total 240 ml 970 ml 650 ml Output Total 900 ml Balance 240 ml 970 ml -250 ml medications Current Medications Medications Dose Ordered Sig/Minda Route Start Time Stop Time Status Last Admin Dose Admin Sodium Chloride 10 ml Q8HR IV 07/30/24 22:00 08/03/24 14:02 10 ML Acetaminophen 325 mg Q4HP PRN PO 07/30/24 21:45 Acetaminophen/ Hydrocodone Bitart 1 tab Q4HP PRN PO 07/30/24 21:45 Ondansetron HCl 4 mg Q4HP PRN IV 07/30/24 21:45 Enoxaparin Sodium 40 mg DAILY SC 07/31/24 10:00 08/03/24 10:24 40 MG Nitroglycerin 0.4 mg Q5MINP PRN SL 07/30/24 21:45 Morphine Sulfate 2 mg Q30M PRN IV 07/30/24 21:45 Ceftriaxone Sodium 50 ml @ 100 mls/hr DAILY@2100 IV 07/31/24 21:00 08/02/24 21:34 100 MLS/HR Azithromycin 250 ml @ 125 mls/hr DAILY@2200 IV 07/31/24 22:00 08/02/24 21:33 125 MLS/HR Nifedipine 30 mg DAILY PO 07/31/24 10:00 08/03/24 10:23 30 MG Levothyroxine Sodium 125 mcg QAM@0600 PO 08/01/24 06:00 08/03/24 05:30 125 MCG Pravastatin Sodium 20 mg HS PO 07/31/24 22:00 08/02/24 21:35 20 MG Albuterol 2.5 mg Q6HR NEB 07/31/24 18:00 08/03/24 12:40 2.5 MG Ipratropium [place] 0.5 mg Q6HR NEB 07/31/24 18:00 08/03/24 12:40 0.5 MG Guaifenesin 200 mg Q8H PO 07/31/24 14:15 08/03/24 05:30 200 MG Fluconazole 200 mg DAILY PO 08/01/24 10:00 08/08/24 09:59 08/03/24 10:23 200 MG Prednisone 20 mg BID PO 08/01/24 22:00 08/06/24 21:59 08/03/24 10:23 20 MG Phenol/Menthol 1 spr Q6HP PRN MT 08/01/24 10:45 Acetylcysteine 100 mg Q6HR NEB 08/01/24 18:00 08/03/24 12:40 100 MG Albuterol 2.5 mg Q2HPRN PRN NEB 08/01/24 16:30 Examination Examination General Appearance: Alert, Oriented X3, Cooperative, No acute distress HEENT: EOMI Respiratory: Bilateral crackles and wheeze Cardiovascular: Regular rate, Normal S1, Normal S2 Abdominal: Normal bowel sounds Extremities: No cyanosis, No edema, Normal pulses, No tenderness/swelling Skin: No rashes, No breakdown Neuro: Normal speech and tone laboratory and microbiology Laboratory Tests 08/03/24 10:22 Test 08/03/24 10:22 Range/Units Serum Glucose 172 H 74-106 mg/dL Microbiology Date/Time Source Procedure Growth Status 08/01/24 14:31 Sputum Expectorated Sputum Gram Stain - Final Resulted 08/01/24 14:31 Sputum Expectorated Sputum Respiratory Culture - Preliminary Resulted 07/31/24 18:14 Blood Blood Culture - Preliminary NO GROWTH AFTER 48 HOURS OF INCUBATION. Resulted 07/31/24 14:30 Nose MRSA Screen - Final Complete Problem List/Assessment/Plan Problem List/Assessment/Plan Acute hypoxic respiratory failure due to pneumonia, improving Pneumonia due to Gram-positive Gram-negative Sepsis likely due to pneumonia Continue Ceftriaxone and azithromycin Sputum culture, is on shows normal robert growth Blood culture, after 24 hours shows no growth MRSA screening, negative COVID and flu were negative Continue breathing treatment Pulmonology on board, recommended to start Diflucan for fungal coverage due to tree and bud opacities on chest CT, and prednisone 20 mg b.i.d. due to wheezing Continue Guaifenesin Continue Chloraseptic spray for the sore throat Continue N-acetyl cysteine GAVIN on CKD grade 2 (based on records from 05/17/2024 GFR 62), likely hemodynamically mediated Improved Hypomagnesemia Supplemented Hypokalemia Supplemented Ruled out pulmonary emboli D-dimer within normal limits Hypothyroidism Continue home medication Hypertension Continue home medication Hyperlipidemia Continuing home medication Vitamin-D deficiency Supplemented DVT prophylaxis Lovenox Code status Full Code Case discussed with Dr. Dennis Plan discussed with: Other KHLOE VASQUEZ RESIDENT Aug 03, 2024 15:20
--- NOTE | 2024-08-03 18:28 | DVHPN2 ---
Progress Note - Dictate Date Seen: Aug 03, 2024 Has the PT tested + for MRSA If YES, has PT been informed?: No Medical Necessity Reason Pt with a Central, PICC or Fol: No Subjective Patient seen and examined at bedside. Remains on supplemental oxygen Overnight events reviewed. vital signs Vital Sign Date Time Temp Pulse Resp B/P (MAP) Pulse Ox O2 Delivery O2 Flow Rate FiO2 08/03/24 18:20 80 20 97 08/03/24 18:17 Nasal Cannula* 2 28 08/03/24 13:20 141/65 08/03/24 13:00 97.6 97.6 Total Intake and Output 08/02/24 08/02/24 08/03/24 15:00 23:00 07:00 Intake Total 240 ml 970 ml 650 ml Output Total 900 ml Balance 240 ml 970 ml -250 ml medications Current Medications Medications Dose Ordered Sig/Minda Route Start Time Stop Time Status Last Admin Dose Admin Sodium Chloride 10 ml Q8HR IV 07/30/24 22:00 08/03/24 14:02 10 ML Acetaminophen 325 mg Q4HP PRN PO 07/30/24 21:45 Acetaminophen/ Hydrocodone Bitart 1 tab Q4HP PRN PO 07/30/24 21:45 Ondansetron HCl 4 mg Q4HP PRN IV 07/30/24 21:45 Enoxaparin Sodium 40 mg DAILY SC 07/31/24 10:00 08/03/24 10:24 40 MG Nitroglycerin 0.4 mg Q5MINP PRN SL 07/30/24 21:45 Morphine Sulfate 2 mg Q30M PRN IV 07/30/24 21:45 Ceftriaxone Sodium 50 ml @ 100 mls/hr DAILY@2100 IV 07/31/24 21:00 08/02/24 21:34 100 MLS/HR Azithromycin 250 ml @ 125 mls/hr DAILY@2200 IV 07/31/24 22:00 08/02/24 21:33 125 MLS/HR Nifedipine 30 mg DAILY PO 07/31/24 10:00 08/03/24 10:23 30 MG Levothyroxine Sodium 125 mcg QAM@0600 PO 08/01/24 06:00 08/03/24 05:30 125 MCG Pravastatin Sodium 20 mg HS PO 07/31/24 22:00 08/02/24 21:35 20 MG Albuterol 2.5 mg Q6HR NEB 07/31/24 18:00 08/03/24 18:12 2.5 MG Ipratropium [place] 0.5 mg Q6HR NEB 07/31/24 18:00 08/03/24 18:12 0.5 MG Guaifenesin 200 mg Q8H PO 07/31/24 14:15 08/03/24 14:15 200 MG Fluconazole 200 mg DAILY PO 08/01/24 10:00 08/08/24 09:59 08/03/24 10:23 200 MG Prednisone 20 mg BID PO 08/01/24 22:00 08/06/24 21:59 08/03/24 10:23 20 MG Phenol/Menthol 1 spr Q6HP PRN MT 08/01/24 10:45 Acetylcysteine 100 mg Q6HR NEB 08/01/24 18:00 08/03/24 18:12 100 MG Albuterol 2.5 mg Q2HPRN PRN NEB 08/01/24 16:30 objective Gen.: Patient lying in bed in no apparent distress. On supplemental oxygen. Head: Normocephalic, atraumatic. Eyes: EOMI/PERRLA. Ears: Normal hearing. Normal anatomy. Neck/trachea: Trachea midline, supple. Nose: Normal external anatomy. Mouth: Moist mucous membranes. Chest: Decreased air entry bilaterally. Wheezing present. No rhonchi. Cardiovascular: Positive S1, positive S2. Regular rate and rhythm. Abdomen: Positive bowel sounds in all 4 quadrants. Soft, non-tender, non- distended. : Deferred. Rectal: Deferred. Skin: Warm, dry. Intact. Extremities: 2+ radial pulses bilaterally. No lower extremity edema. Neuro: Awake, alert, oriented x3. No gross motor or sensory deficits. Cranial nerves II through XII intact. Gait not assessed. laboratory and microbiology Laboratory Tests 08/03/24 10:22 Test 08/03/24 10:22 Range/Units Serum Glucose 172 H 74-106 mg/dL Assessment/Plan Impression: Acute hypoxic respiratory failure 2/2 pneumonia Sepsis likely due Gram negative pneumonia Pneumonia likely gram negative Atelectasis Abnormal CT chest Leucocytosis, resolved Pulmonary embolism ruled out Cachexia, pulmonary; BMI 19.6 Hypokalemia Acute kidney injury Imaging/Diagnostic: CT chest report and images reviewed. IMPRESSION: 1. Nonspecific mild patchy tree-in-bud and ground-glass opacity in the posterior left upper lobe. These May relate to infectious/ inflammatory changes. A follow-up study in 3-4 months is recommended evaluate for resolution. 2. Ascending thoracic aorta is prominent size measuring 4.1 cm. Consider further evaluation with CTA chest. D and influenza negative Events: Patient was noted to desaturate on room air. Placed on supplemental oxygen 2 LPM via NC Taper O2 as tolerated. Arrange for home O2 Continue antibiotics/antifungals. Continue bronchodilators Mucomyst Continue prednisone course. IS Creatinine trending down WBC is within normal limits Labs and imaging reviewed. Rest of plan as noted below. Plan: Supplemental oxygen 2 LPM via NC Keep o2 saturation above 92%. Continue bronchodilators Continue antibiotics. F/u cultures. Recommend to repeat CT chest in 3 months to document resolution of opacities. Started Diflucan for fungal coverage due to tree and bud opacities. Monitor renal function due to Acute kidney injury. Monitor ins/outs. Monitor electrolytes. Supplement as necessary. Nutritional support. Accucheks, ISS. GI/DVT prophylaxis. Prognosis: Guarded given multiple comorbidities. Rest of plan per hospitalist and other consultants. A total of 51 minutes of clinical care time was spent reviewing the patient record, examining the patient, making a diagnostic and therapeutic plan, discussing this plan with the medical personnel, following up on diagnostic studies and following the patient for clinical stability excluding any and all procedures. At least 50% of this time was spent in direct, [id number] contact. Thank you Dr. Arreaga for allowing me to participate in this patient's care. Further recommendations will depend on patient's clinical course. Please do not hesitate to contact me if you have any questions or concerns. This medical document was created using an electronic medical record system with [employer] dictation system. Although this document has been carefully reviewed, there may still be some phonetic and typographical errors. These areas are purely typographical due to imperfections of the software programs, and do not reflect any compromise in the patient's medical care. Plan discussed with: Patient, Other (ABIMBOLA Benjamin) ISREAL PEREZ MD Aug 03, 2024 18:28
[2024-08-04] VITALS (13 sets, daily range): BP systolic 110–141; BP diastolic 62–74; PULSE 93–110; RESP 16–20; TEMP 97.7–98.2; O2SAT 91–100
[2024-08-04 07:05] LABS: Chloride 102 mmol/L (98-107); Potassium 4.5 mmol/L (3.5-5.1); Sodium 136 mmol/L (136-145)
[2024-08-04 07:06] LABS: Anion Gap 4 (5-15); Calcium 10.5 mg/dL (8.7-10.4); Carbon Dioxide 30 mmol/L (20-31)
[2024-08-04 07:11] LABS: BUN/Creatinine Ratio 16.8 (10.0-20.0); Blood Urea Nitrogen 22 mg/dL (9-23); Glucose 123 mg/dL (74-106)
[2024-08-04] MEDS ORDERED: FLUC100T34 PO (15:34)
[2024-08-04] MEDS ORDERED: AUG875T PO (15:34)
[2024-08-04] MEDS ORDERED: PRED20TA2 PO (15:34)
[2024-08-04] MEDS ORDERED: CEFP200T15 PO (17:31)
[2024-08-04] MEDS ORDERED: AZIT500T66 PO (17:31)
--- NOTE | 2024-08-04 18:34 | DVHDSRES ---
Discharge Summary Date of Admission Resident Creating Document: KHLOE VASQUEZ RESIDENT Jul 30, 2024 at 21:41 Date of Discharge: Aug 04, 2024 Admitting Diagnosis Acute hypoxic respiratory failure Wounds: Labs/Diagnostic Data: Laboratory Results Test 08/04/24 11:54 08/04/24 06:47 08/03/24 10:22 07/31/24 10:04 Blood Gas Specimen Type Arterial Blood Gas Sample Site Right radial Blood Gas Patient Temperature 37.0 Arterial Blood Date Drawn [id number] Arterial Blood pH 7.496 (7.350-7.450) Arterial Blood Partial Pressure CO2 35.9 mmHg (32.0-45.0) Arterial Blood Partial Pressure O2 55.1 mmHg (83.0-108.0) Arterial Blood HCO3 27.1 mmol/L (21.0-28.0) Arterial Blood Oxygen Saturation 89.4 % (94.0-98.0) Arterial Blood Base Excess 4.0 mmol/L (-2.0-3.0) Arterial Blood Oxyhemoglobin 88.7 % (94.0-98.0) Arterial Blood Carboxyhemoglobin 0.4 % (0.5-1.5) Arterial Blood Methemoglobin 0.4 % (0.0-1.5) Kris Test Yes Blood Gas Total Hemoglobin 14.30 g/dL (12.0-16.0) Blood Gas Modality Room air FiO2 % 21.0 Sodium Level 136 mmol/L (136-145) Potassium Level 4.5 mmol/L (3.5-5.1) Chloride Level 102 mmol/L (98-107) Carbon Dioxide Level 30 mmol/L (20-31) Anion Gap 4 (5-15) Blood Urea Nitrogen 22 mg/dL (9-23) Creatinine 1.31 mg/dL (0.550-1.02) Glomerular Filtration Rate Calc 43 mL/min (>90) BUN/Creatinine Ratio 16.8 (10.0-20.0) Serum Glucose 123 mg/dL (74-106) Calcium Level 10.5 mg/dL (8.7-10.4) White Blood Count 5.3 10^3/uL (4.4-10.8) Red Blood Count 4.20 10^6/uL (4.0-5.20) Hemoglobin 14.1 g/dL (12.2-16.2) Hematocrit 39.9 % (36.0-46.0) Mean Corpuscular Volume 95.0 fL (80.0-100.0) Mean Corpuscular Hemoglobin 33.6 pg (28.0-32.0) Mean Corpuscular Hemoglobin Concent 35.3 g/dL (32.0-36.0) Red Cell Distribution Width 12.6 % (11.8-14.3) Platelet Count 219 10^3/uL (140-450) Mean Platelet Volume 8.8 fL (6.9-10.8) Neutrophils (%) (Auto) 84.9 % (37.0-80.0) Lymphocytes (%) (Auto) 8.3 % (10.0-50.0) Monocytes (%) (Auto) 6.7 % (0.0-12.0) Eosinophils (%) (Auto) 0.0 % (0.0-7.0) Basophils (%) (Auto) 0.1 % (0.0-2.0) Neutrophils # (Auto) 4.5 10 ^3/uL (1.6-8.6) Lymphocytes # (Auto) 0.4 10 ^3/uL (0.4-5.4) Monocytes # (Auto) 0.4 10 ^3/uL (0-1.3) Eosinophils # (Auto) 0 10 ^3/uL (0-0.8) Basophils # (Auto) 0 10 ^3/uL (0-0.2) Nucleated Red Blood Cells 0.1 % Magnesium Level 1.7 mg/dL (1.6-2.6) Lactic Acid Level 1.5 mmol/L (0.4-2.0) Test 07/31/24 05:19 07/31/24 01:37 07/30/24 19:31 07/30/24 18:09 Total Bilirubin 0.4 mg/dL (0.2-1.0) Aspartate Amino Transferase (AST) 9 U/L (13-40) Alanine Aminotransferase (ALT) < 9 U/L (7-40) Alkaline Phosphatase 58 U/L (46-116) Total Protein 6.5 g/dL (5.7-8.2) Albumin 4.0 g/dL (3.2-4.8) Vitamin B12 Level 574 pg/mL (211-911) Vitamin D 25-Hydroxy 28.7 ng/mL (30.0-100) Thyroid Stimulating Hormone (TSH) 0.62 uIU/mL (0.55-4.78) Urine Color Light-yellow (Yellow) Urine Clarity Clear (Clear) Urine pH 5.5 (5.0-9.0) Urine Specific [place] 1.009 (1.001-1.035) Urine Protein Trace (Negative) Urine Ketones Negative (Negative) Urine Blood Trace /uL (Negative) Urine Nitrite Negative (Negative) Urine Bilirubin Negative (Negative) Urine Urobilinogen Normal mg/dL (Negative) Urine Leukocyte Esterase Trace /uL (Negative) Urine RBC 4 /hpf (0 - 4) Urine WBC 4 /hpf (0 - 5) Urine Squamous Epithelial Cells Few /hpf (<5) Urine Bacteria None seen /hpf (None Seen) Urine Glucose Normal mg/dL (Normal) Troponin I High Sensitivity 10 ng/L (</=34) Influenza Type A Antigen Negative (Negative) Influenza Type B Antigen Negative (Negative) SARS-CoV-2 Antigen (Rapid) Negative (NEGATIVE) Test 07/30/24 16:48 D-Dimer, Quantitative 0.46 mg/L FEU (0.0-0.49) B-Type Natriuretic Peptide 39.71 pg/mL (0-100) Other Laboratory Tests 08/04/24 06:47 08/03/24 10:22 Brief Hx & Hospital Course: This is a 74-year-old female who came into the ED with the chief complaint of shortness of breath. She has a past medical history relevant for hypertension and hypothyroidism. In the ER, history was obtained from her granddaughter as the patient could not speak in full sentences due to respiratory distress. The patient has had exertional dyspnea for six months and has visited urgent care three times due to shortness of breath. She was nebulized and discharged home, but her shortness of breath worsened over the past 2 days, and her oxygen saturation dropped into the 80s, prompting her to come to the hospital. The patient also reports having a cough with thick secretions that she could not clear easily, [id number] chest pain located throughout the chest, which is worse on deep inspiration, and dizziness and lightheadedness over the last couple of days. She has lost around 45 lbs in the last 4-5 months. She denies any chills, fevers, night sweats, abdominal pain, nausea, vomiting, diarrhea, constipation, extremity swelling, hematochezia, or melena. PCP: Dr. Noriega PMHx: Hypertension, hyperlipidemia, hypothyroidism PSHx: Cholecystectomy, appendectomy, lung surgery at [facility] (details unknown) Family history: Noncontributory Social history: Lives alone Home medication: Levothyroxine 125 mcg, nifedipine 30 mg, simvastatin 10 mg Allergic history: Penicillin Lab studies were significant for raised WBC at 11.2, decreased potassium at 3.0, raised creatinine at 1.21, magnesium at 1.7, and raised lactate at 2.7. Chest X- ray showed hyperinflation with a tubular-shaped heart. During hospital admission, the patient was treated for acute hypoxic respiratory failure due to pneumonia. She was given injection azithromycin, ceftriaxone, oxygen through a nasal cannula, acetyl cystine, guaifenesin(for the cough and sputum), breathing treatments. Home medications were resumed, and the patient was also put on enoxaparin for DVT prevention. Chest CT scan was showing nonspecific mild patchy tree-in-bud and ground-glass opacity in the posterior left upper lobe. Due to persistent cough and secretions that the patient could not clear, pulmonology was consulted and recommended tablet fluconazole 200 mg daily. Physical therapy evaluation was performed an, due to drop in saturation of oxygen the patient was qualified for home oxygen with 2 liters/minute. On 08/04/2024, the patient was feeling better since admission. Patient has cough and shortness of bed had improved and had no new complaints. Discharge plan was discussed with the patient and the was discharged with the following plan. Discharge plan: * Tablet azithromycin 500 mg daily for 5 days * Tablet cefpodoxime 200 mg twice daily for 3 days * Tablet fluconazole 200 mg daily for 5 days * Continue oxygen through nasal cannula 2 liters/minute at home * Follow up with the PCP/discharge Clinic within 1 week of the discharge * Follow up with the Dr. Ang(the supervisor public health nursing) at the office for evaluation of possible COPD * Continue home medication including levothyroxine 125 mg daily, nifedipine 30 mg daily, simvastatin 10 mg daily Consults/Reason for consult Pulmonology: Persistent cough and sputum Operations or Procedures [address] [address] Ph: [phone] DIAGNOSTIC IMAGING Diagnostic Imaging Report : [id number] Signed PATIENT: HERIBERTO RETANA EACCT: [id number] UNIT: [id number] : 1950 LOC: [facility] ROOM / BED: 0245 / B AGE / SEX: 74 / F ADM STATUS: ADM IN SERVICE 0751 ORDERING PHYSICIAN: KHLOE VASQUEZ PROCEDURE(s): CX2CT - CHEST WITHOUT CONTRAST REASON: recent weight loss, pneumonia ORDER NUMBER(s): [id number], ACCESSION NUMBER(s): [id number] Procedure: CT CHEST WITHOUT CONTRAST Reason for study/Clinical History: Weight loss. Comparison Study: None available at time of dictation. Exam Date: 07/31/2024 08:25 AM TECHNIQUE: Multidetector CT of the chest was performed from the lung apices to the upper abdomen without the use of intravenous contract. Axial, coronal and sagittal multiplanar reformats were performed. Radiation Dose Information: CT Dose: CTDI volume is 4.56 mGy. Dose-length product is 172.44 mGy*cm The dose indicators for CT are the volume Computed Tomography (CT) Dose Index (CTDIvol) and the Dose Length Product (DLP), and are measured in units of mGy and mGy-cm, respectively. These indicators are not patient dose, but values generated from the CT scanner acquisition factors. The report includes radiation exposure data for exposures received during this examination. Radiation optimization: All CT scans at this facility use at least one of these dose optimization techniques: automated exposure control mA and/or kV adjustment per patient size (includes targeted exams where dose is matched to clinical indication) or iterative reconstruction. FINDINGS Lungs: There is nonspecific mild patchy tree-in-bud and ground-glass opacity in the posterior left upper lobe. There is scarring versus atelectasis in the left lung base. There is no suspicious appearing pulmonary nodule or mass. Heart/Vascular Structures: Normal heart size. No pericardial effusion. There are coronary artery calcifications. The ascending thoracic aorta is prominent in size measuring 4.1 cm. Lymph Nodes: No thoracic lymphadenopathy. Pleura: No pleural effusion or significant pneumothorax. Musculoskeletal: No acute osseous abnormality. There is multilevel thoracic spondylosis. Soft tissues: Unremarkable. Upper abdomen: Visualized solid abdominal viscera grossly appears unremarkable. IMPRESSION: 1. Nonspecific mild patchy tree-in-bud and ground-glass opacity in the posterior left upper lobe. These May relate to infectious/ inflammatory changes. A follow-up study in 3-4 months is recommended evaluate for resolution. 2. Ascending thoracic aorta is prominent size measuring 4.1 cm. Consider further evaluation with CTA chest. HS:Y ATED BY: SJ BULL MD DICTATED DATE/TIME: 07/31/24848 SIGNED BY: SJ BULL MD SIGNED DATE/TIME: 07/31/24848 CC: [place] [address] Ph: [phone] DIAGNOSTIC IMAGING Diagnostic Imaging Report : [id number] Signed PATIENT: HERIBERTO RETANA EACCT: [id number] UNIT: [id number] : 1950 LOC: ER ROOM / BED: / AGE / SEX: 74 / F ADM STATUS: REG ER SERVICE 26 ORDERING PHYSICIAN: JANAE HAYWOOD RESIDENT PROCEDURE(s): CXRP - CHEST PORTABLE REASON: sob ORDER NUMBER(s): [id number], ACCESSION NUMBER(s): [id number] EXAM: XR Chest, 1 View CLINICAL INDICATION: sob TECHNIQUE: Frontal view of the chest. COMPARISON: XY CHEST XRAY 1 VIEW on DOS: 05/17/24 FINDINGS: LUNGS AND PLEURAL SPACES: Unremarkable. No consolidation. No pneumothorax. HEART: Unremarkable. No cardiomegaly. MEDIASTINUM: Unremarkable. Normal mediastinal contour. BONES/JOINTS: Unremarkable. No acute fracture. OTHER FINDINGS: . . . IMPRESSION: No acute cardiopulmonary process. HS:Y ATED BY: ADRIAN POLLARD MD DICTATED DATE/TIME: 07/30/241650 SIGNED BY: ADRIAN POLLARD MD SIGNED DATE/TIME: 07/30/241650 CC: [address] [address] Ph: [phone] DIAGNOSTIC IMAGING Diagnostic Imaging Report : [id number] Signed PATIENT: HERIBERTO RETANA EACCT: [id number] UNIT: [id number] : 1950 LOC: [facility] ROOM / BED: [facility] / B AGE / SEX: 74 / F ADM STATUS: ADM IN SERVICE 40 ORDERING PHYSICIAN: TUNG CONTRERAS RESIDENT PROCEDURE(s): ECIDC - ECHO 2D MODE CARDIAC DOP REASON: Shortness of breath ORDER NUMBER(s): [id number], ACCESSION NUMBER(s): [id number] APPROVED REPORT EXAM: Two-dimensional and M-mode echocardiogram with Doppler and color Doppler. Blood Pressure: 123/76 mmHg INDICATION SOB RISK FACTORS Height: 62, Weight: 107 DIMENSIONS LVDd 3.7 (3.8-5.7cm) LA (2D) 4.0 (1.9-4.0cm) Aortic Root 3.5 (2.0- 3.7cm) LVDs 2.5 (2.5-4.0cm) LA (MM) (1.9-4.0cm) Aortic Cusp Exc 1.7 (1.5- 2.0cm) EF (%) 61.0 (55-70%) Rt. Atrium 3.8 (1.9-4.0cm) Asc. Aorta cm Mitral Valve Mitral Mitral Stenosis E/A ratio 0.0 2D MVA cm2 Aortic Valve Aortic Valve Aortic Stenosis LVOT Diameter 1.7 (1.8-2.4cm) Doppler VIANEY cm2 Pulmonic Valve V2 0.65m/s Other Information Technically limited study due to body habitus and patient position. Unable to obtain apical view. Conclusion Normal left ventricular size and dimension. Normal left ventricular systolic function estimated ejection fraction 55%. There is a grade 1 diastolic dysfunction. Normal right ventricular size and dimension. Normal right ventricular systolic function. Normal biatrial size and dimension. Normal aortic valve structure and function. Normal mitral valve structure and function. Normal tricuspid valve structure and function. The pulmonary valve is grossly normal. No pericardial effusion. SIGNED BY: GOPI PALENCIA MD SIGNED DATE/TIME: 07/31/24 8095 CC: Condition at Discharge: Good Final Diagnosis/Problems List Acute hypoxic respiratory failure due to pneumonia, improving Pneumonia likely due to Gram-positive Gram-negative, viral Sepsis likely due to pneumonia GAVIN on CKD grade 2 (based on records from 05/17/2024 GFR 62), likely hemodynamically mediated Hypomagnesemia Hypokalemia Ruled out pulmonary emboli Hypothyroidism Hypertension Hyperlipidemia Vitamin-D deficiency Atelectasis Abnormal CT chest Cachexia, pulmonary; BMI 20.6 Ruled out ACS (acute coronary syndrome) Discharge Disposition: Home Discharge Instruct/Medications Diet: Cardiac 2g Na,low cholest Activity: No Restrictions, As Tolerated Follow Up/Referral: Follwo up with the PCP within one week after discharge. follow with Dr. Ang in office for pulmonary condition. Medications: Tab. Augmentin for 3 mopre days. Tab. diclofan 200mg for 5 more days. Discharge Statement: "Patient was advised to return to the ER or call 911 if any headaches, dizziness, shortness of breath, chest pain, abdominal pain, bleeding, fevers, or worsening of medical condition. Patient was counseled about treatment plan, medications, possible side effects, patientverbalized understanding. All questions were answered to the best of my ability. This discharge took greater then 30 minutes in planning, reviewing documentation, counseling the patient, and discussing with other team members." ASSESSMENT ASSESSMENT Assessment Pneumonia FRANCEHSCA [facility] Aug 04, 2024 18:34
--- NOTE | 2024-08-04 18:47 | DVHPN2 ---
Progress Note - Dictate Date Seen: Aug 04, 2024 Has the PT tested + for MRSA If YES, has PT been informed?: No Medical Necessity Reason Pt with a Central, PICC or Fol: No Subjective Patient seen and examined at bedside. Remains on supplemental oxygen Overnight events reviewed. vital signs Vital Sign Date Time Temp Pulse Resp B/P (MAP) Pulse Ox O2 Delivery O2 Flow Rate FiO2 08/04/24 17:00 98.1 110 20 131/62 (85) 94 98.1 08/04/24 12:13 Nasal Cannula 1.0 08/04/24 12:13 24 Total Intake and Output 08/03/24 08/03/24 08/04/24 15:00 23:00 07:00 Intake Total 240 ml 1050 ml 1200 ml Output Total 600 ml 800 ml Balance 240 ml 450 ml 400 ml objective Gen.: Patient lying in bed in no apparent distress. On supplemental oxygen. Head: Normocephalic, atraumatic. Eyes: EOMI/PERRLA. Ears: Normal hearing. Normal anatomy. Neck/trachea: Trachea midline, supple. Nose: Normal external anatomy. Mouth: Moist mucous membranes. Chest: Decreased air entry bilaterally. Wheezing present. No rhonchi. Cardiovascular: Positive S1, positive S2. Regular rate and rhythm. Abdomen: Positive bowel sounds in all 4 quadrants. Soft, non-tender, non- distended. : Deferred. Rectal: Deferred. Skin: Warm, dry. Intact. Extremities: 2+ radial pulses bilaterally. No lower extremity edema. Neuro: Awake, alert, oriented x3. No gross motor or sensory deficits. Cranial nerves II through XII intact. Gait not assessed. laboratory and microbiology Laboratory Tests 08/04/24 06:47 08/03/24 10:22 Test 08/04/24 06:47 Range/Units Serum Glucose 123 H 74-106 mg/dL Assessment/Plan Impression: Acute hypoxic respiratory failure 2/2 pneumonia Sepsis likely due Gram negative pneumonia Pneumonia likely gram negative Atelectasis Abnormal CT chest Leucocytosis, resolved Pulmonary embolism ruled out Cachexia, pulmonary; BMI 19.6 Hypokalemia Acute kidney injury Imaging/Diagnostic: CT chest report and images reviewed. IMPRESSION: 1. Nonspecific mild patchy tree-in-bud and ground-glass opacity in the posterior left upper lobe. These May relate to infectious/ inflammatory changes. A follow-up study in 3-4 months is recommended evaluate for resolution. 2. Ascending thoracic aorta is prominent size measuring 4.1 cm. Consider further evaluation with CTA chest. D and influenza negative Events: Remains on supplemental oxygen 2 LPM via [place] Taper O2 as tolerated. Arranged for home O2 Obtain ABG on room air to assess if pt qualifies. Continue antibiotics/antifungals. Continue bronchodilators Mucomyst Continue prednisone course. IS Patient is stable for discharge from the pulmonary standpoint. Follow up in 1-2 weeks in Pulmonary Clinic. Labs and imaging reviewed. Rest of plan as noted below. Plan: Supplemental oxygen 2 LPM via [place] Keep o2 saturation above 92%. Continue bronchodilators Continue antibiotics. F/u cultures. Recommend to repeat CT chest in 3 months to document resolution of opacities. Started Diflucan for fungal coverage due to tree and bud opacities. Monitor renal function due to Acute kidney injury. Monitor ins/outs. Monitor electrolytes. Supplement as necessary. Nutritional support. Accucheks, ISS. GI/DVT prophylaxis. Prognosis: Guarded given multiple comorbidities. Rest of plan per hospitalist and other consultants. A total of 51 minutes of clinical care time was spent reviewing the patient record, examining the patient, making a diagnostic and therapeutic plan, discussing this plan with the medical personnel, following up on diagnostic studies and following the patient for clinical stability excluding any and all procedures. At least 50% of this time was spent in direct, [id number] contact. Thank you Dr. Arreaga for allowing me to participate in this patient's care. Further recommendations will depend on patient's clinical course. Please do not hesitate to contact me if you have any questions or concerns. This medical document was created using an electronic medical record system with [employer] dictation system. Although this document has been carefully reviewed, there may still be some phonetic and typographical errors. These areas are purely typographical due to imperfections of the software programs, and do not reflect any compromise in the patient's medical care. Dietary Evaluation Review Comments: Encourage high protein foods. Expected Outcomes/Goals: less breathing stress. Plan discussed with: Patient, Other ([email or web address] Tom) ISREAL PEREZ MD Aug 04, 2024 18:47
== END 2024-08-04 17:20 | disposition home or self-care (01) | DRG 871 ==
LOC: ER 16:16 → OVERFLOW 21:41 → EAST 21:43
PROVIDERS: ADMIT Student in an Organized Health Care Education/Training Program; ATTEND Student in an Organized Health Care Education/Training Program
DX: A41.50 Gram-negative sepsis, unspecified (principal); J12.9 Viral pneumonia, unspecified; J96.01 Acute respiratory failure with hypoxia; J15.69 Pneumonia due to other Gram-negative bacteria; J15.9 Unspecified bacterial pneumonia; J44.1 Chronic obstructive pulmonary disease with (acute) exacerbation; J44.0 Chronic obstructive pulmonary disease with (acute) lower respiratory infection; J45.901 Unspecified asthma with (acute) exacerbation; N17.9 Acute kidney failure, unspecified; R64 Cachexia; J98.11 Atelectasis; Z20.822 Contact with and (suspected) exposure to COVID-19; E87.6 Hypokalemia; E03.9 Hypothyroidism, unspecified; E78.5 Hyperlipidemia, unspecified; E83.42 Hypomagnesemia; I12.9 Hypertensive chronic kidney disease with stage 1 through stage 4 chronic kidney disease, or unspecified chronic kidney disease; Z90.49 Acquired absence of other specified parts of digestive tract; Z88.0 Allergy status to penicillin; Z68.20 Body mass index [BMI] 20.0-20.9, adult; N18.2 Chronic kidney disease, stage 2 (mild)
CPT/HCPCS: 36415; 36600; 71045; 71250; 80048; 80053; 81001; 82306; 82607; 82805; 83605; 83735; 83880; 84132; 84443; 84484; 85025; 85379; 87040; 87070; 87081; 87205; 87426; 87804; 93005; 93306; 94640; 94667; 94668; 96361; 96365; 96367; 96375; 97110; 97116; 97163; 97530; G0378; J3480